=== PATIENT | female | born 1940 | race Caucasian/White ===

== ENCOUNTER → 2016-04-13 | Outpatient (CLI) | payer MEDICARE, BC ==
[2016-04-13 08:39] LABS: ABSOLUTE BASOPHILS # (AUTO) 0.1 10^3/uL (0.0-0.2); ABSOLUTE EOSINOPHILS # (AUTO) 0.2 10^3/uL (0.0-0.6); ABSOLUTE LYMPHOCYTES (AUTO) 0.8 10^3/uL (0.5-4.7); ABSOLUTE MONOCYTES (AUTO) 0.5 10^3/uL (0.1-1.4); ABSOLUTE NEUT (AUTO) 4.6 10^3/uL (1.7-8.2); BASOPHILS % (AUTO) 1.3 % (0-2); EOSINOPHILS % (AUTO) 2.5 % (0-6); HEMATOCRIT 36.7 % (36.0-47.0); HEMOGLOBIN 11.9 g/dL (12.0-15.5); LYMPHOCYTES % (AUTO) 12.5 % (13-45); MEAN CORPUSCULAR HEMOGLOBIN 29.7 pg (27.0-33.4); MEAN CORPUSCULAR HGB CONC 32.5 g/dL (32.0-36.0); MEAN CORPUSCULAR VOLUME 91 fl (80-97); MONOCYTES % (AUTO) 8.6 % (3-13); RED BLOOD COUNT 4.02 10^6/uL (3.72-5.28); RED CELL DISTRIBUTION WIDTH 13.2 % (11.5-14.0); SEGMENTED NEUTROPHILS % (AUTO) 75.1 % (42-78); WHITE BLOOD COUNT 6.1 10^3/uL (4.0-10.5)
[2016-04-13 09:10] LABS: ANION GAP 15 (5-19); BLOOD UREA NITROGEN 67 mg/dL (7-20); CALCIUM 9.7 mg/dL (8.4-10.2); CARBON DIOXIDE 22 mmol/L (22-30); CHLORIDE 107 mmol/L (98-107); CREATININE RESULT 3.03 mg/dL (0.52-1.25); GLUCOSE 99 mg/dL (75-110); PHOSPHORUS 4.4 mg/dL (2.5-4.5); POTASSIUM 4.6 mmol/L (3.6-5.0); SODIUM 144.2 mmol/L (137-145); URIC ACID 12.7 mg/dL (2.5-7.5)
[2016-04-14 11:40] LABS: CREATININE URINE 136.4 mg/dL (Not Estab.)
== END ==
LOC: OD 07:48
PROVIDERS: ATTEND Internal Medicine Nephrology
DX: N18.4 Chronic kidney disease, stage 4 (severe) (principal); E83.30 Disorder of phosphorus metabolism, unspecified; M10.9 Gout, unspecified
CPT/HCPCS: 36415; 80048; 82570; 84100; 84156; 84550; 85025

== ENCOUNTER → 2016-05-13 | Outpatient (CLI) | payer MEDICARE, BC ==
--- NOTE | 2016-05-13 16:01 | XCELERA REPORT ---
[address] [address] Lower Extremity Venous Evaluation Name: ADELAIDA BAR Age: 75 yrs Gender: Female : 1940 Patient Status: Preadmit Patient Location: Study Date: 05/13/2016 01:37 PM Procedure: Color flow and duplex imaging of the veins of the left lower extremity as well as the right Common Femoral vein. Reason For Study: LLE PAIN Ordering Physician: DUANE FERNÁNDEZ Performed By: Melissa Quiñonez Right Sided Venous Evaluation The right common femoral vein is fully compressible. Spontaneous and phasic flow is present in the right common femoral vein. Left Sided Venous Evaluation Normal vessel filling wall to wall, compression and augmentation as well as Colour flow down to the infrageniculate veins. Critical Findings Called [phone] at 1430. Interpretation Summary No duplex evidence of DVT or obstruction in the left lower extremity nor in the right Common Femoral vein. : DUANE FERNÁNDEZ > Dale Rubin
== END ==
LOC: SP 12:55
PROVIDERS: ATTEND Internal Medicine
DX: M79.605 Pain in left leg (principal)
CPT/HCPCS: 93971

== ENCOUNTER → 2016-06-08 | Outpatient (CLI) | payer MEDICARE, BC ==
[2016-06-08 09:24] LABS: ANION GAP 17 (5-19); BLOOD UREA NITROGEN 67 mg/dL (7-20); CALCIUM 9.2 mg/dL (8.4-10.2); CARBON DIOXIDE 21 mmol/L (22-30); CHLORIDE 108 mmol/L (98-107); CREATININE RESULT 3.04 mg/dL (0.52-1.25); GLUCOSE 127 mg/dL (75-110); POTASSIUM 4.3 mmol/L (3.6-5.0); SODIUM 145.8 mmol/L (137-145); URIC ACID 8.1 mg/dL (2.5-7.5)
[2016-06-09 06:45] LABS: HEPATITIS C VIRUS AB <0.1 s/co ratio (0.0-0.9)
[2016-06-09 10:20] LABS: PTH INTACT 108 pg/mL (15-65); VITAMIN D 25-HYDROXY 24.1 ng/mL (30.0-100.0)
[2016-06-09 11:40] LABS: CREATININE URINE 35.9 mg/dL (Not Estab.)
== END ==
LOC: OD 07:54
PROVIDERS: ATTEND Internal Medicine Nephrology
DX: N18.4 Chronic kidney disease, stage 4 (severe) (principal); E55.9 Vitamin D deficiency, unspecified; M10.9 Gout, unspecified
CPT/HCPCS: 36415; 80048; 82306; 82570; 83970; 84156; 84550; 86803; 86804

== ENCOUNTER → 2016-09-09 | Outpatient (CLI) | payer MEDICARE, BC ==
[2016-09-09 09:43] LABS: ABSOLUTE EOSINOPHILS # (AUTO) 0.3 10^3/uL (0.0-0.6); ABSOLUTE LYMPHOCYTES (AUTO) 0.8 10^3/uL (0.5-4.7); ABSOLUTE MONOCYTES (AUTO) 0.4 10^3/uL (0.1-1.4); BASOPHILS % (AUTO) 0.7 % (0-2); EOSINOPHILS % (AUTO) 4.2 % (0-6); HEMATOCRIT 35.1 % (36.0-47.0); HEMOGLOBIN 11.7 g/dL (12.0-15.5); LYMPHOCYTES % (AUTO) 12.5 % (13-45); MEAN CORPUSCULAR HEMOGLOBIN 30.7 pg (27.0-33.4); MEAN CORPUSCULAR HGB CONC 33.2 g/dL (32.0-36.0); MEAN CORPUSCULAR VOLUME 92 fl (80-97); MONOCYTES % (AUTO) 6.6 % (3-13); RED CELL DISTRIBUTION WIDTH 14.3 % (11.5-14.0); WHITE BLOOD COUNT 6.6 10^3/uL (4.0-10.5)
[2016-09-09 10:08] LABS: ALBUMIN 4.3 g/dL (3.5-5.0); ANION GAP 13 (5-19); BLOOD UREA NITROGEN 73 mg/dL (7-20); CALCIUM 8.9 mg/dL (8.4-10.2); CARBON DIOXIDE 23 mmol/L (22-30); CHLORIDE 105 mmol/L (98-107); CREATININE RESULT 2.99 mg/dL (0.52-1.25); GLUCOSE 149 mg/dL (75-110); PHOSPHORUS 5.3 mg/dL (2.5-4.5); POTASSIUM 4.6 mmol/L (3.6-5.0); SODIUM 140.9 mmol/L (137-145); URIC ACID 8.3 mg/dL (2.5-7.5)
[2016-09-09 10:15] LABS: URINE PROTEIN 86.4 mg/dL (<12)
[2016-09-10 09:50] LABS: VITAMIN D 25-HYDROXY 22.7 ng/mL (30.0-100.0)
== END ==
LOC: OD 08:07
PROVIDERS: ATTEND Internal Medicine Nephrology
DX: N18.4 Chronic kidney disease, stage 4 (severe) (principal); D63.1 Anemia in chronic kidney disease; N25.81 Secondary hyperparathyroidism of renal origin; M10.9 Gout, unspecified
CPT/HCPCS: 36415; 80048; 82040; 82306; 82570; 83970; 84100; 84156; 84550; 85025

== ENCOUNTER → 2016-12-12 | Outpatient (CLI) | payer MEDICARE, BC ==
[2016-12-12 11:20] LABS: ABSOLUTE EOSINOPHILS # (AUTO) 0.1 10^3/uL (0.0-0.6); ABSOLUTE LYMPHOCYTES (AUTO) 0.7 10^3/uL (0.5-4.7); ABSOLUTE MONOCYTES (AUTO) 0.4 10^3/uL (0.1-1.4); ABSOLUTE NEUT (AUTO) 4.7 10^3/uL (1.7-8.2); BASOPHILS % (AUTO) 0.8 % (0-2); EOSINOPHILS % (AUTO) 1.7 % (0-6); HEMATOCRIT 33.6 % (36.0-47.0); HEMOGLOBIN 11.4 g/dL (12.0-15.5); HGB HCT DIFFERENCE 0.6; LYMPHOCYTES % (AUTO) 12.3 % (13-45); MEAN CORPUSCULAR HEMOGLOBIN 31.3 pg (27.0-33.4); MEAN CORPUSCULAR HGB CONC 33.9 g/dL (32.0-36.0); MEAN CORPUSCULAR VOLUME 92 fl (80-97); MONOCYTES % (AUTO) 7.4 % (3-13); RED BLOOD COUNT 3.65 10^6/uL (3.72-5.28); RED CELL DISTRIBUTION WIDTH 14.6 % (11.5-14.0); SEGMENTED NEUTROPHILS % (AUTO) 77.8 % (42-78)
[2016-12-12 11:27] LABS: APPEARANCE,URINE CLEAR; BILIRUBIN,URINE NEGATIVE (NEGATIVE); GLUCOSE, URINE NEGATIVE (NEGATIVE); KETONES,URINE NEGATIVE (NEGATIVE); LEUKOCYTE ESTERASE,URINE SMALL (NEGATIVE); NITRITE,URINE NEGATIVE (NEGATIVE); PROTEIN,URINE 30 mg/dL (NEGATIVE); URINE SPECIFIC GRAVITY 1.005; UROBILINOGEN,URINE NEGATIVE mg/dL (<2.0)
[2016-12-12 11:47] LABS: ANION GAP 15 (5-19); BLOOD UREA NITROGEN 68 mg/dL (7-20); CALCIUM 9.7 mg/dL (8.4-10.2); CARBON DIOXIDE 23 mmol/L (22-30); CHLORIDE 108 mmol/L (98-107); CREATININE RESULT 3.11 mg/dL (0.52-1.25); GLUCOSE 87 mg/dL (75-110); PHOSPHORUS 4.4 mg/dL (2.5-4.5); POTASSIUM 4.3 mmol/L (3.6-5.0); SODIUM 145.8 mmol/L (137-145)
[2016-12-12 12:47] LABS: URINE CREATININE 23.7 mg/dL (15-278); URINE PROTEIN 34.5 mg/dL (<12)
== END ==
LOC: OD 10:17
PROVIDERS: ATTEND Internal Medicine Nephrology
DX: N18.4 Chronic kidney disease, stage 4 (severe) (principal); E11.29 Type 2 diabetes mellitus with other diabetic kidney complication; E55.9 Vitamin D deficiency, unspecified; E83.39 Other disorders of phosphorus metabolism
CPT/HCPCS: 36415; 80048; 81001; 82306; 82570; 84100; 84156; 85025

== ENCOUNTER → 2016-12-27 | Outpatient (CLI) | payer MEDICARE, BC ==
[2016-12-27 13:54] LABS: ANION GAP 16 (5-19); BLOOD UREA NITROGEN 81 mg/dL (7-20); CALCIUM 9.3 mg/dL (8.4-10.2); CARBON DIOXIDE 21 mmol/L (22-30); CHLORIDE 108 mmol/L (98-107); CREATININE RESULT 3.11 mg/dL (0.52-1.25); GLUCOSE 93 mg/dL (75-110); POTASSIUM 4.3 mmol/L (3.6-5.0); SODIUM 144.6 mmol/L (137-145)
== END ==
LOC: OD 12:28
PROVIDERS: ATTEND Internal Medicine Nephrology
DX: N18.4 Chronic kidney disease, stage 4 (severe) (principal)
CPT/HCPCS: 36415; 80048

== ENCOUNTER 2017-02-28 07:32 | Day surgery (SDC) | payer MEDICARE, BC ==
[~2017-02-28 07:32] MED LIST: DIAZEPAM 5 MG TABLET PO PRN; OXYCODONE-ACETAMINOPHEN 5-325 MG TABLET PO PRN
[2017-02-28 08:15] LABS: HEMATOCRIT 33.9 % (36.0-47.0); HEMOGLOBIN 11.2 g/dL (12.0-15.5); HGB HCT DIFFERENCE -0.3; MEAN CORPUSCULAR HEMOGLOBIN 31.8 pg (27.0-33.4); MEAN CORPUSCULAR HGB CONC 33.2 g/dL (32.0-36.0); MEAN CORPUSCULAR VOLUME 96 fl (80-97); RED BLOOD COUNT 3.54 10^6/uL (3.72-5.28); RED CELL DISTRIBUTION WIDTH 15.4 % (11.5-14.0); WHITE BLOOD COUNT 7.1 10^3/uL (4.0-10.5)
[2017-02-28] MEDS ORDERED: FENTANYL CITRATE INJ/PF 100 MCG/2 ML AMPUL ONE ×2 (08:25→11:26)
[2017-02-28] MEDS ORDERED: MIDAZOLAM 2 MG/2 ML INJ ONE (08:25)
[2017-02-28] MEDS ORDERED: PROPOFOL INJ 200 MG/20 ML VIAL IV ONE (08:26)
[2017-02-28] MEDS ORDERED: VANCOMYCIN HCL 500 MG in DEXTROSE 5%-WATER 100 ML IV PRN (08:30)
[2017-02-28 08:38] LABS: ANION GAP 15 (5-19); BLOOD UREA NITROGEN 55 mg/dL (7-20); CALCIUM 9.2 mg/dL (8.4-10.2); CARBON DIOXIDE 25 mmol/L (22-30); CHLORIDE 106 mmol/L (98-107); CREATININE RESULT 3.08 mg/dL (0.52-1.25); GLUCOSE 111 mg/dL (75-110); SODIUM 145.7 mmol/L (137-145)
[2017-02-28] MEDS ORDERED: LIDOCAINE 0.5% INJ-PF (5 MG/ML) 50 ML SDV ONE (08:47)
[2017-02-28] MEDS ORDERED: VANCOMYCIN HCL INJ 500 MG VIAL ONE (08:54)
[2017-02-28] MEDS ORDERED: HEPARIN SOD (PORCINE) 5,000 UNIT/ML 1 ML SYRINGE ONE (08:56)
[2017-02-28] MEDS ORDERED: BACITRACIN INJ 50,000 UNIT VIAL ONE (08:56)
[2017-02-28] MEDS ORDERED: FENTANYL CITRATE INJ/PF 100 MCG/2 ML AMPUL IV PRN ×2 (11:26)
[2017-02-28] MEDS ORDERED: ACETAMINOPHEN 100 ML IV ONE (11:26)
[2017-02-28] MEDS ORDERED: ONDANSETRON HCL INJ/PF 4 MG/2 ML SDV IV PRN (11:26)
--- NOTE | 2017-02-28 11:28 | PDOC DISCHARGE SUMMARY ---
Discharge Summary (SDC) - Discharge Final Diagnosis: #1 malfunctioning arteriovenous fistula, left radiocephalic. 2. End-stage renal disease on hemodialysis. 3. Obesity. 4. Diabetes mellitus type 2. 5. Hypertension Date of Surgery: 02/28/17 Discharge Date: 02/28/17 Condition: Good Treatment or Instructions: Discharge home [after recovery per ASU criteria]. Diet , [renal],as tolerated, when fully awake advance as tolerated. Activities within moderation encouraged. Follow up in my office by appointment in about [1 week]. Call for appointment. Leave wounds [covered], [keep clean and dry, until office visit in 1 week]. Hold of on school/work [until evaluation in office]. Meds per med rec. May shower [in 48 hrs], [try to keep operated area as dry as possible]. Prescriptions: Oxycodone HCl/Acetaminophen [Percocet 5-325 mg Tablet] 1 tab PO ASDIR PRN #15 tab PRN Reason: Referrals: DUANE FERNÁNDEZ MD [Primary Care Provider] - Discharge Diet: Other (Comments) - Renal Respiratory Treatments at Home: Deep Breathing/Coughing Discharge Activity: Activity As Tolerated Report the Following to Your Physician Immediately: Shortness of Breath, Unusual Bleeding
--- NOTE | 2017-02-28 11:37 | Operative Report ---
Operative Report DATE OF SURGERY: 02/28/17 PREOPERATIVE DIAGNOSIS: #1 malfunctioning arteriovenous fistula, left radiocephalic. 2. End-stage renal disease on hemodialysis. 3. Obesity. 4. Diabetes mellitus type 2. 5. Hypertension POSTOPERATIVE DIAGNOSIS: #1 malfunctioning arteriovenous fistula, left radiocephalic. Post Port-A-Cath insertion and distal angioplasty. 2. End- stage renal disease on hemodialysis. 3. Obesity. 4. Diabetes mellitus type 2. 5. Hypertension I collected those OPERATION: 1. Ultrasound evaluation of the right internal jugular vein also ultrasound evaluation of left radiocephalic fistula. 2. Insertion of PermCath via real-time access in the right internal jugular vein. 3. Angioplasty of left forearm greatest radiocephalic fistula. 5. Angiogram and Interpretation. SURGEON: FLY WATSON Child Daycare Worker: None ANESTHESIA: LMAC TISSUE REMOVED OR ALTERED: Not applicable. COMPLICATIONS: None. ESTIMATED BLOOD LOSS: 5 mL. INTRAOPERATIVE FINDINGS: Of a satisfactory right internal jugular vein to support permacatheter. Estimated to be 1.5 cm in diameter. Good position of the catheter with the tip down in the upper right atrial pool. Easy egress of blood and ingress of heparinized solution through both ports. Contrast study showed the right atrium moderate size, smooth flow through the catheter, right atrium and pulmonary outflow tract. Left forearm fistula demonstrates a stenosis at the arteriovenous anastomosis estimated to be 50% of the adjacent lumen. Very little residual stenosis after angioplasty with a 5 mm balloon. Ultrasound shows the fistula to be 7.5 mm in diameter and 7.5 mm deep. This was dilated moderately with an 8 mm balloon with improvement visually. There is also a large collateral coming off the mid forearm portion of the fistula. These findings suggest that, with resolution of bruising the fistula should be available for use in about 1 week. Otherwise ligation of the large branch and superficial laceration may be needed. Further dilatation is probably not likely to be that helpful. PROCEDURE: After obtaining informed consent, the patient was taken to the [Lamp Replacer] and positioned supine. The [right neck] and chest were prepared with chlorhexidine and draped out with sterile linen. After the " universal timeout", in which it was verified that the patient continued to receive antibiotic, the procedure commenced. A steriley sheathed ultrasound probe was used to evaluate the [ right internal jugular] vein. Local anesthesia was infiltrated adjacent to the probe. Access into the [right internal jugular] vein was obtained using a micropuncture needle, followed by micropuncture wire and then a micropuncture catheter. This was followed by introduction of a 0.035 guidewire the tip of which was placed down into the inferior vena cava . A 23 cm long permacatheter was now positioned over the chest and an exit site marked and locally anesthetized ,the catheter was placed between the 2 incisions. Proximally, the catheter was now positioned using a peel-away sheath, after dilation. Easy ingress of heparinized solution and egress of blood obtained through both ports. A completion angiogram was done by injecting contrast. The findings were as dictated. The neck incision was now closed using interrupted 3-0 PDS to the subcutaneous tissues, the catheter was anchored at the exit site using 3- 0 PDS. A Biopatch device was now placed adjacent to the catheter. Dressings were applied and the procedure concluded. PROCEDURE: After verifying the procedure and having obtained informed consent, the patient's left arm and forearm were prepared with Chlorhexidine and draped out with sterile linen. Local anesthesia infiltrated. Percutaneous access into the fistula ,[retrograde], obtained about [20 cm] from the arteriovenous anastomosis using a micro puncture needle followed by micro puncture wire and then a micro puncture catheter. This was done on ultrasound guidance using real-time access into the vein. Ultrasound was also used to size the vein. A 0.035 Durant wire was inserted, and over this, a 6 Danish short introducer was placed, this was followed by a Kumpe catheter over the guidewire. This allowed an angiogram with the findings as dictated. A [5] angioplasty balloon . Angioplasty was now done at the distal radial artery at the anastomosis, using a 3 mils syringe. This was done very carefully and sustained for 2 minutes. Angiogram demonstrated successful outcome. The balloon was now swapped over the wire for a 8 mm angioplasty balloon. Angioplasty was In the body of the fistula and up to the introducer. Inflating for a minute at a time.]. Completion angiogram demonstrated [satisfactory result]. The instrumentation was now withdrawn over and pressure for 10 minutes. Dressings applied, procedure concluded. Exposure time: 1. minutes Radiation: 22 mCi Contrast: 25 mL of Isovue-M 300 low osmolality. DICTATING PHYSICIAN: FLY CASTLE M.D. cc: FLY CASTLE M.D. ([id number]) >>
[2017-02-28 14:23] VITALS: BP 145/88
--- NOTE | 2017-02-28 16:51 | RADIOLOGY REPORT (SQ) ---
EXAM DESCRIPTION: TUNNELED CENTRAL LINE; GUIDANCE FLUOROSCOPIC; FISTULAGRAM W/PLASTY COMPLETED DATE/TIME: 02/28/2017 2:48 pm; 02/28/2017 12:34 pm REASON FOR STUDY: T82.858A; NEED FOR VASCULAR ACCESS T82.858A STENOSIS OF OTHER VASCULAR PROSTH DEV /GRFT, INIT COMPARISON: Two-view chest 08/18/2015 FLUOROSCOPY TIME: 1.2 minutes 8 digital images saved to PACS. TECHNIQUE: Intra-operative images acquired during surgical procedure to evaluate progress. NUMBER OF IMAGES: 32 digital radiographic images LIMITATIONS: None. FINDINGS: Intra procedural imaging and fluoro during evaluation and plasty of a left upper extremity dialysis graft by Dr. Rubin. Intra procedural imaging and fluoro during placement of a central venous dialysis catheter with the t ip in the right atrium. Please see the operative report for further details IMPRESSION: Intra procedural imaging and fluoro COMMENT: Quality ID 145: Final reports for procedures using fluoroscopy that document radiation exp osure indices, or exposure time and number of fluorographic images (if radiation exposure indices are not available) Please consult full operative report of the attending physician for description of the procedure. TECHNICAL DOCUMENTATION: JOB ID: [id number] [employer]- All Rights Reserved
== END 2017-02-28 13:35 | disposition home or self-care (01) ==
LOC: CCL 07:32
PROVIDERS: ATTEND Surgery
PROC: 057F3DZ Dilation of Left Cephalic Vein with Intraluminal Device, Percutaneous Approach (ICD-10-PCS; principal; 2017-02-28)
PROC: 05HM33Z Insertion of Infusion Device into Right Internal Jugular Vein, Percutaneous Approach (ICD-10-PCS; 2017-02-28)
DX: T82.858A Stenosis of other vascular prosthetic devices, implants and grafts, initial encounter (principal); Y83.2 Surgical operation with anastomosis, bypass or graft as the cause of abnormal reaction of the patient, or of later complication, without mention of misadventure at the time of the procedure; I12.0 Hypertensive chronic kidney disease with stage 5 chronic kidney disease or end stage renal disease; N18.6 End stage renal disease; E11.22 Type 2 diabetes mellitus with diabetic chronic kidney disease; M54.30 Sciatica, unspecified side; D50.9 Iron deficiency anemia, unspecified; E83.39 Other disorders of phosphorus metabolism; M19.90 Unspecified osteoarthritis, unspecified site; K75.81 Nonalcoholic steatohepatitis (NASH); I48.91 Unspecified atrial fibrillation; F17.210 Nicotine dependence, cigarettes, uncomplicated; Z79.899 Other long term (current) drug therapy; E66.9 Obesity, unspecified; Z68.43 Body mass index [BMI] 50.0-59.9, adult
CPT/HCPCS: 36415; 85027; 80048; 36558; 36902; 76937; 77001; C1725 ×2; C1713; C1752; C1887; Q9967; C1769; J2250; J3490 ×2; J1644 ×2; J3010; J3370; J2704; J0131; 1844

== ENCOUNTER → 2017-04-01 | Outpatient (CLI) | payer MEDICARE, BC ==
--- NOTE | 2017-04-01 15:26 | RADIOLOGY REPORT (SQ) ---
EXAM DESCRIPTION: CT ABD/PELVIS ORAL ONLY COMPLETED DATE/TIME: 04/01/2017 11:13 am REASON FOR STUDY: RIGHT UPPER QUADRANT PAIN K75.81 NONALCOHOLIC STEATOHEPATITIS (CAIN) R10.11 RIGH T UPPER QUADRANT PAIN COMPARISON: 04/29/2015. TECHNIQUE: CT scan of the abdomen and pelvis performed with oral contrast and no intravenous contras t. Images reviewed with lung, soft tissue, and bone windows. Reconstructed coronal and sagittal MPR i mages reviewed. All images stored on PACS. All CT scanners at this facility use dose modulation, iterative reconstruction, and/or weight based d osing when appropriate to reduce radiation dose to as low as reasonably achievable (ALARA). [facility]: Dose Right [facility]: CareDose [facility]: Dose Right [facility]: Teradose 4D [facility]: [employer] RADIATION DOSE: CT Rad equipment meets quality standard of care and radiation dose reduction techniq ues were employed. CTDIvol: 17.4 mGy. DLP: 963 mGy-cm.mGy. LIMITATIONS: None. FINDINGS: LOWER CHEST: No significant findings. No nodules or infiltrates. NON-CONTRASTED LIVER, SPLEEN, ADRENALS: Evaluation limited by lack of IV contrast. Right adrenal gla nd not visualized. Left adrenal gland appears slightly enlarged. No other identified significant ma sses. PANCREAS: No masses. No peripancreatic inflammatory changes. GALLBLADDER: Surgically absent. RIGHT KIDNEY AND URETER: There is a large mass occupying the upper portion of the kidney. Maximum tr ansverse measurement 10 x 12 cm. Irregular margins. LEFT KIDNEY AND URETER: Probable cortical cysts. No solid masses. No significant calcification. No h ydronephrosis or hydroureter. AORTA AND RETROPERITONEUM: No aneurysm. There are a few retroperitoneal lymph nodes measuring slight ly over 1 cm. There is also an enlarged retrocrural node on the right side measuring 1.5 cm. BOWEL AND PERITONEAL CAVITY: No obvious masses or inflammatory changes. Trace free fluid in the righ t upper quadrant between the liver and diaphragm. APPENDIX: Normal. PELVIS, BLADDER, AND ABDOMINAL WALL: No abnormal pelvic masses. No abdominal wall hernias. Bladder un remarkable. BONES: No significant findings. Degenerative changes in the spine. OTHER: No other significant finding. IMPRESSION: 1. VERY LARGE IRREGULAR SOFT TISSUE MASS OCCUPYING THE UPPER PORTION OF THE RIGHT KIDNEY, CONSISTENT WITH RENAL MALIGNANCY. RECOMMEND FURTHER EVALUATION WITH MRI OF THE KIDNEYS. 2. RETROPERITONEAL AND RETROCRURAL ADENOPATHY. 3. TRACE FREE FLUID IN IN THE RIGHT UPPER QUADRANT BETWEEN THE LIVER AND DIAPHRAGM. 4. PROBABLE CORTICAL CYST IN THE LEFT KIDNEY. TECHNICAL DOCUMENTATION: JOB ID: [id number] Quality ID # 436: Final reports with documentation of one or more dose reduction techniques (e.g., Au tomated exposure control, adjustment of the mA and/or kV according to patient size, use of iterative reconstruction technique) 2010 [email or web address]- All Rights Reserved
== END ==
LOC: RAD 10:49
PROVIDERS: ATTEND Surgery
DX: K75.81 Nonalcoholic steatohepatitis (NASH) (principal); R10.11 Right upper quadrant pain
CPT/HCPCS: 74176

== ENCOUNTER → 2017-04-07 | Outpatient (CLI) | payer MEDICARE, BC ==
--- NOTE | 2017-04-07 14:10 | RADIOLOGY REPORT (SQ) ---
EXAM DESCRIPTION: CT CHEST WITH COMPLETED DATE/TIME: 04/07/2017 1:35 pm REASON FOR STUDY: C64.1 MALIGNANT NEOPLASM OF RIGHT KIDNEY, EXCEPT RENAL PELVIS C64.1 MALIGNANT MERRY PLASM OF RIGHT KIDNEY, EXCEPT RENAL PELVI COMPARISON: None. TECHNIQUE: CT scan of the chest performed using helical scanning technique with dynamic intravenous contrast injection. Images reviewed with lung, soft tissue and bone windows. Reconstructed coronal and sagittal MPR images reviewed. All images stored on PACS. All CT scanners at this facility use dose modulation, iterative reconstruction, and/or weight based d osing when appropriate to reduce radiation dose to as low as reasonably achievable (ALARA). [facility]: Dose Right [facility]: CareDose [facility]: Dose Right [facility]: Teradose 4D [facility]: [employer] CONTRAST TYPE AND DOSE: 96 mL Isovue 370 RENAL FUNCTION: Creatinine 1.5 RADIATION DOSE: . LIMITATIONS: None. FINDINGS: LUNGS AND PLEURA: No opacities, nodules, masses. No pneumothorax. Tiny right pleural eff usion is identified. Linear density is identified in the left lung base anteriorly which could repre sent subsegmental atelectasis or scarring. HILAR AND MEDIASTINAL STRUCTURES: No identified masses or abnormal nodes. HEART AND VASCULAR STRUCTURES: No aneurysm or dissection. No central pulmonary emboli. No pericardi al effusion. HARDWARE: Central line is identified with its tip at the approximate junction of SVC and right atrium . UPPER ABDOMEN: See results under abdominal CT is THYROID AND OTHER SOFT TISSUES: No masses. No adenopathy. BONES: No significant finding. OTHER: No other significant finding. IMPRESSION: No evidence for intrathoracic metastatic disease is seen. Findings as noted above TECHNICAL DOCUMENTATION: JOB ID: [id number] Quality ID # 436: Final reports with documentation of one or more dose reduction techniques (e.g., Au tomated exposure control, adjustment of the mA and/or kV according to patient size, use of iterative reconstruction technique) 2010 [employer]- All Rights Reserved
--- NOTE | 2017-04-07 14:43 | RADIOLOGY REPORT (SQ) ---
EXAM DESCRIPTION: CT ABD/PELVIS WITH IV ONLY COMPLETED DATE/TIME: 04/07/2017 1:35 pm REASON FOR STUDY: C64.1 MALIGNANT NEOPLASM OF RIGHT KIDNEY, EXCEPT RENAL PELVIS C64.1 MALIGNANT MERRY PLASM OF RIGHT KIDNEY, EXCEPT RENAL PELVI COMPARISON: Non IV contrasted CT of the abdomen and pelvis dated 04/01/2017 TECHNIQUE: CT scan of the abdomen and pelvis performed using helical scanning technique with dynamic intravenous contrast injection. No oral contrast. Images reviewed with lung, soft tissue, and bone windows. Reconstructed coronal and sagittal MPR images reviewed. Delayed images for evaluation of the urinary system also acquired. All images stored on PACS. All CT scanners at this facility use dose modulation, iterative reconstruction, and/or weight based d osing when appropriate to reduce radiation dose to as low as reasonably achievable (ALARA). [facility]: Dose Right [facility]: CareDose [facility]: Dose Right [facility]: Teradose 4D [facility]: [employer] CONTRAST TYPE AND DOSE: contrast/concentration: Isovue 370.00 mg/ml; Total Contrast Delivered: 96.0 ml; Total Saline Delivered: 59.0 ml RENAL FUNCTION: Creatinine 1.5 RADIATION DOSE: CT Rad equipment meets quality standard of care and radiation dose reduction techniq ues were employed. CTDIvol: 12.8 - 23.1 mGy. DLP: 2692 mGy-cm.. LIMITATIONS: None. FINDINGS: LOWER CHEST: See results under chest CT scan LIVER: Normal size. No masses. No dilated ducts. SPLEEN: Normal size. No focal lesions. PANCREAS: No masses. No significant calcifications. No adjacent inflammation or peripancreatic fluid collections. Pancreatic duct not dilated. GALLBLADDER: Status post cholecystectomy ADRENAL GLANDS: Normal right adrenal gland is not identified. Slightly enlarged left adrenal gland i s again identified. RIGHT KIDNEY AND URETER: The right kidney is displaced laterally by the large right upper quadrant ma ss but appears distinct from the mass. No significant calcifications. No hydronephrosis or hydrou reter. LEFT KIDNEY AND URETER: No solid masses small renal cyst is identified. . No significant calcifica tions. No hydronephrosis or hydroureter. AORTA AND VESSELS: No aneurysm. No dissection. Renal arteries, SMA, celiac without stenosis. RETROPERITONEUM: There is retroperitoneal adenopathy anterior to the distal superior vena cava and ad jacent to the distal abdominal aorta. There are couple enlarged lymph nodes at the bifurcation of th e celiac axis. BOWEL AND PERITONEAL CAVITY: No masses or inflammatory changes. Tiny amount of ascitic fluid is iden tified just posterior to the right lobe of the liver. APPENDIX: Normal. PELVIS: No mass. No free fluid. Normal bladder. ABDOMINAL WALL: No masses. No hernias. BONES: No significant or acute findings. Degenerative changes are identified in the lumbar spine OTHER: A large lobulated right upper quadrant mass is identified measuring 13.1 cm in AP diameter, 11 .9 cm in transverse diameter, and 10.9 cm in cephalocaudal dad diameter which displaces the right kid roseanne laterally and appears to be separate from the right kidney. The mass displaces the inferior vena cava anteriorly. IMPRESSION: Large lobulated right upper quadrant mass as noted above. The differential possibilitie s would include a renal neoplasm although the mass appears separate from the right kidney. This coul d represent an adrenal mass as the right adrenal gland is not identified. This could also represent some sort of retroperitoneal sarcoma. Other etiologies cannot be excluded. Clinical correlation is recommended. Other findings as noted above TECHNICAL DOCUMENTATION: JOB ID: [id number] Quality ID # 436: Final reports with documentation of one or more dose reduction techniques (e.g., Au tomated exposure control, adjustment of the mA and/or kV according to patient size, use of iterative reconstruction technique) 2010 [employer]- All Rights Reserved
== END ==
LOC: RAD 13:26
PROVIDERS: ATTEND Internal Medicine
DX: C64.1 Malignant neoplasm of right kidney, except renal pelvis (principal)
CPT/HCPCS: 71260; 74177; 82565

== ENCOUNTER 2017-04-25 08:58 | Day surgery (SDC) | payer MEDICARE, BC ==
[2017-04-25 09:43] LABS: HEMATOCRIT 31.5 % (36.0-47.0); HEMOGLOBIN 10.4 g/dL (12.0-15.5); MEAN CORPUSCULAR HEMOGLOBIN 30.8 pg (27.0-33.4); MEAN CORPUSCULAR HGB CONC 32.9 g/dL (32.0-36.0); MEAN CORPUSCULAR VOLUME 94 fl (80-97); PLATELET COUNT 103 10^3/uL (150-450); RED BLOOD COUNT 3.37 10^6/uL (3.72-5.28); RED CELL DISTRIBUTION WIDTH 16.4 % (11.5-14.0); WHITE BLOOD COUNT 5.4 10^3/uL (4.0-10.5)
[2017-04-25 09:49] LABS: INTERNATIONAL RATION (INR) 1.15; PROTHROMBIN TIME 15.5 SEC (11.4-15.4)
[2017-04-25 09:50] LABS: PARTIAL THROMBOPLASTIN TIME 38.3 SEC (23.5-35.8)
[2017-04-25 10:01] LABS: BLOOD UREA NITROGEN 44 mg/dL (7-20)
[2017-04-25] MEDS ORDERED: LIDOCAINE 1% INJ-PF (10 MG/ML) 30 ML SDV ONE (11:37)
[2017-04-25] MEDS ORDERED: FENTANYL CITRATE INJ/PF 100 MCG/2 ML AMPUL ONE (11:57)
[2017-04-25] MEDS ORDERED: MIDAZOLAM 2 MG/2 ML INJ ONE (11:57)
--- NOTE | 2017-04-25 13:35 | RADIOLOGY REPORT (SQ) ---
EXAM DESCRIPTION: CT BIOPSY ABD/RETROPERIT MASS; CT NEEDLE PLACEMENT COMPLETED DATE/TIME: 04/25/2017 12:39 pm REASON FOR STUDY: MALIGNANT NEOPLASM OF RIGHT KIDNEY EXCEPT RENAL PELVIS C64.1 MALIGNANT NEOPLASM O F RIGHT KIDNEY, EXCEPT RENAL PELVI Z79.01 SENIOR LIVING (CURRENT) USE OF ANTICOAGULANTS COMPARISON: CT abdomen pelvis 04/07/2017 TECHNIQUE: CT guided biopsy of the right retroperitoneal mass performed with conscious sedation. CT Fluoroscopy Time: 6.[address] scanners at this facility use dose modulation, iterative reconstruction, and/or weight based d osing when appropriate to reduce radiation dose to as low as reasonably achievable (ALARA). [facility]: Dose Right [facility]: CareDose [facility]: Dose Right [facility]: Teradose 4D [facility]: [employer] RADIATION DOSE: mGy. FINDINGS: The procedure was discussed with the patient and the patient agreed to the procedure. Prio r to the procedure, a time out was performed to verify the patient's identity and planned procedure. IV pain control was administered and physician direction by the registered nurse using 25 micrograms of fentanyl. Physiologic monitoring was provided before, during, and after sedation. The total pain c ontrol time was 15 minutes. Documentation face to face time, the performing proceduralist, spent monitoring the patient: [address] scanning was performed to localize the percutaneous site for the biopsy approach. After sterile skin prep and local lidocaine for skin and deep tissue anesthesia, a coaxial biopsy nee dle was used to obtain multiple cores of tissue. The biopsy tissue was submitted to the lab in formal in. There were no immediate complications. Pathology is pending at the time of dictation. IMPRESSION: CT GUIDED BIOPSY OF THE LARGE RIGHT RETROPERITONEAL MASS PERFORMED WITHOUT IMMEDIATE COM PLICATION. PATHOLOGY PENDING. COMMENT: Quality ID 145: Final reports for procedures using fluoroscopy that document radiation exp osure indices, or exposure time and number of fluorographic images (if radiation exposure indices are not available) Patient medication list reviewed: Yes- Quality ID# [id number]:Eligible professional attests to documenting i n the medical record they obtained, updated, or reviewed the patient's current medications.. TECHNICAL DOCUMENTATION: JOB ID: [id number] Quality ID# 436: Final reports with documentation of one or more dose reduction techniques (e.g., Aut omated exposure control, adjustment of the mA and/or kV according to patient size, use of iterative r econstruction technique) 2010 [employer]- All Rights Reserved
--- NOTE | 2017-04-25 13:35 | RADIOLOGY REPORT (SQ) ---
EXAM DESCRIPTION: CT BIOPSY ABD/RETROPERIT MASS; CT NEEDLE PLACEMENT COMPLETED DATE/TIME: 04/25/2017 12:39 pm REASON FOR STUDY: MALIGNANT NEOPLASM OF RIGHT KIDNEY EXCEPT RENAL PELVIS C64.1 MALIGNANT NEOPLASM O F RIGHT KIDNEY, EXCEPT RENAL PELVI Z79.01 LONG-TERM (CURRENT) USE OF ANTICOAGULANTS COMPARISON: CT abdomen pelvis 04/07/2017 TECHNIQUE: CT guided biopsy of the right retroperitoneal mass performed with conscious sedation. CT Fluoroscopy Time: 6.[address] scanners at this facility use dose modulation, iterative reconstruction, and/or weight based d osing when appropriate to reduce radiation dose to as low as reasonably achievable (ALARA). [facility]: Dose Right [facility]: CareDose [facility]: Dose Right [facility]: Teradose 4D [facility]: [employer] RADIATION DOSE: mGy. FINDINGS: The procedure was discussed with the patient and the patient agreed to the procedure. Prio r to the procedure, a time out was performed to verify the patient's identity and planned procedure. IV pain control was administered and physician direction by the registered nurse using 25 micrograms of fentanyl. Physiologic monitoring was provided before, during, and after sedation. The total pain c ontrol time was 15 minutes. Documentation face to face time, the performing proceduralist, spent monitoring the patient: [address] scanning was performed to localize the percutaneous site for the biopsy approach. After sterile skin prep and local lidocaine for skin and deep tissue anesthesia, a coaxial biopsy nee dle was used to obtain multiple cores of tissue. The biopsy tissue was submitted to the lab in formal in. There were no immediate complications. Pathology is pending at the time of dictation. IMPRESSION: CT GUIDED BIOPSY OF THE LARGE RIGHT RETROPERITONEAL MASS PERFORMED WITHOUT IMMEDIATE COM PLICATION. PATHOLOGY PENDING. COMMENT: Quality ID 145: Final reports for procedures using fluoroscopy that document radiation exp osure indices, or exposure time and number of fluorographic images (if radiation exposure indices are not available) Patient medication list reviewed: Yes- Quality ID# [id number]:Eligible professional attests to documenting i n the medical record they obtained, updated, or reviewed the patient's current medications.. TECHNICAL DOCUMENTATION: JOB ID: [id number] Quality ID# 436: Final reports with documentation of one or more dose reduction techniques (e.g., Aut omated exposure control, adjustment of the mA and/or kV according to patient size, use of iterative r econstruction technique) 2010 [employer]- All Rights Reserved
[2017-04-25 15:07] VITALS: BP 114/58
== END 2017-04-25 15:07 | disposition home or self-care (01) ==
LOC: RAD 08:58
PROVIDERS: ATTEND Internal Medicine
PROC: 0WBH3ZX Excision of Retroperitoneum, Percutaneous Approach, Diagnostic (ICD-10-PCS; principal; 2017-04-25)
DX: C64.1 Malignant neoplasm of right kidney, except renal pelvis (principal); Z79.01 Long term (current) use of anticoagulants
CPT/HCPCS: 36415; 82962; 84520; 82565; 85027; 85610; 85730; 88342 ×2; 88341 ×2; 88305 ×2; 77012; 49180; J2250; J3010; J3490

== ENCOUNTER 2017-04-27 15:30 | Inpatient (IN) | payer MEDICARE, BC ==
[2017-04-27 16:16] LABS: ABSOLUTE BASOPHILS # (AUTO) 0.1 10^3/uL (0.0-0.2); ABSOLUTE LYMPHOCYTES (AUTO) 0.9 10^3/uL (0.5-4.7); ABSOLUTE NEUT (AUTO) 4.3 10^3/uL (1.7-8.2); HEMATOCRIT 32.1 % (36.0-47.0); HEMOGLOBIN 10.6 g/dL (12.0-15.5); LYMPHOCYTES % (AUTO) 14.1 % (13-45); MEAN CORPUSCULAR HEMOGLOBIN 30.6 pg (27.0-33.4); MEAN CORPUSCULAR VOLUME 93 fl (80-97); MONOCYTES % (AUTO) 16.5 % (3-13); PLATELET COUNT 114 10^3/uL (150-450); RED BLOOD COUNT 3.47 10^6/uL (3.72-5.28); RED CELL DISTRIBUTION WIDTH 16.5 % (11.5-14.0); SEGMENTED NEUTROPHILS % (AUTO) 68.4 % (42-78); TOTAL CELLS COUNTED % (AUTO) 100 %; WHITE BLOOD COUNT 6.3 10^3/uL (4.0-10.5)
[2017-04-27 16:27] LABS: ALANINE AMINOTRANSFERASE 31 U/L (9-52); ALKALINE PHOSPHATASE 92 U/L (38-126); ANION GAP 18 (5-19); ASPARTATE AMINO TRANSFERASE 36 U/L (14-36); BILIRUBIN,DIRECT 1.1 mg/dL (0.0-0.4); BILIRUBIN,TOTAL 2.3 mg/dL (0.2-1.3); BLOOD UREA NITROGEN 62 mg/dL (7-20); CALCIUM 9.6 mg/dL (8.4-10.2); CARBON DIOXIDE 19 mmol/L (22-30); CHLORIDE 102 mmol/L (98-107); GLUCOSE 119 mg/dL (75-110); POTASSIUM 4.5 mmol/L (3.6-5.0); TOTAL PROTEIN 6.8 g/dL (6.3-8.2)
--- NOTE | 2017-04-27 16:47 | RADIOLOGY REPORT (SQ) ---
EXAM DESCRIPTION: CHEST SINGLE VIEW COMPLETED DATE/TIME: 04/27/2017 4:36 pm REASON FOR STUDY: sob COMPARISON: Chest CT scan dated 04/07/2017 EXAM PARAMETERS: NUMBER OF VIEWS: One view. TECHNIQUE: Single frontal radiographic view of the chest acquired. RADIATION DOSE: NA LIMITATIONS: None. FINDINGS: LUNGS AND PLEURA: No opacities, masses or pneumothorax. No pleural effusion. MEDIASTINUM AND HILAR STRUCTURES: No masses. Contour normal. HEART AND VASCULAR STRUCTURES: Cardiac silhouette is at the upper limits of normal in size. BONES: No acute findings. HARDWARE: Dual lumen central line is seen with its tip at the level of the right atrium P OTHER: No other significant finding. IMPRESSION: NO ACUTE RADIOGRAPHIC FINDING IN THE CHEST. TECHNICAL DOCUMENTATION: JOB ID: [id number] [employer]- All Rights Reserved
[2017-04-27] MEDS ORDERED: HYDROMORPHONE HCL INJ/PF 2 MG/ML AMPULE IV ONE (18:58)
[2017-04-27] MEDS ORDERED: DEXTROSE 5%-NORMAL SALINE 1,000 ML IV ONE (19:50)
[2017-04-27] MEDS ORDERED: INSULIN REG, HUMAN 100 UNIT/ML 3 ML VIAL (PYX) IV ONE (19:52)
[2017-04-27] MEDS ORDERED: NORMAL SALINE 1000 ML 1,000 ML IV ONE (19:53)
--- NOTE | 2017-04-27 20:22 | ER Document Report ---
ED General - General Chief Complaint: Arrhythmia Stated Complaint: HIGH HEART RATE Time Seen by Provider: 04/27/17 15:48 Information source: Patient, Relative, Transfer Record, [facility] Records TRAVEL OUTSIDE OF THE [place] IN LAST 30 DAYS: No - HPI Patient complains to provider of: rapid heart beat Onset: Just prior to arrival Onset/Duration: Sudden Associated symptoms: Shortness of breath, Weakness Exacerbated by: Denies Relieved by: Denies Similar symptoms previously: Yes - during HD Recently seen / treated by doctor: Yes - sent over by Dr. Morrell Notes: 76-year-old female comes over sent by Dr. Morrell from his office for atrial tachycardia. Patient had a newly diagnosed retroperitoneal mass and recently had a biopsy. She is awaiting pathology report on that. Patient also end- stage renal disease. She had an AV fistula placed 2 years ago in her left upper extremity however she did not start dialysis until this January. She states that the AV fistula is not working so she does have a PermCath in the right side of her chest. She seen Dr. Vasquez hematology oncology one time last week and she is awaiting the biopsy results for follow-up. He states for the last few weeks she has had this rapid heartbeat with palpitations shortness of breath and near syncope. She states it can happen while she is on dialysis or while she is off it. She denies nausea vomitin fevers or diarrhea. She has a history of Montero, A. fib, gout, diabetes. She sees Dr. Ellen Elliott is her primary medical doctor. Patient is due for dialysis tomorrow. Her neurologist is Dr. Duong - Related Data Allergies/Adverse Reactions: cefprozil [From Cefzil] Allergy (Unknown, Verified 04/27/17 09:43) Past Medical History - General Information source: Patient, Relative, [facility] Records - Social History Smoking Status: Never Smoker Frequency of alcohol use: None Drug Abuse: None Lives with: Family Family History: Reviewed & Not Pertinent, DM Patient has suicidal ideation: No Patient has homicidal ideation: No - Past Medical History Cardiac Medical History: Reports: Hx Atrial Fibrillation, Hx Hypercholesterolemia, Hx Hypertension Denies: Hx Coronary Artery Disease, Hx Heart Attack Pulmonary Medical History: Denies: Hx Asthma, Hx Bronchitis, Hx COPD, Hx Pneumonia, Hx Tuberculosis Neurological Medical History: Reports: None. Denies: Hx Cerebrovascular Accident, Hx Seizures Endocrine Medical History: Reports: Hx Diabetes Mellitus Type 1, Hx Diabetes Mellitus Type 2 Renal/ Medical History: Reports: Hx End Stage Renal Disease, Hx Kidney Stones , Hx Peritoneal Dialysis Malignancy Medical History: Reports: None, Other - Retroperitoneal mass. Patient awaiting biopsy results GI Medical History: Reports: None Musculoskeltal Medical History: Reports Hx Arthritis - GENEARLIZED Psychiatric Medical History: Reports: Hx Depression Traumatic Medical History: Reports: None Past Surgical History: Reports: Hx Section, Hx Cholecystectomy, Hx Orthopedic Surgery - left knee, Hx Thyroid Surgery - parathyroid. Denies: Hx Pacemaker - Immunizations Hx Diphtheria, Pertussis, Tetanus Vaccination: Yes Hx Pneumococcal Vaccination: 12/18/14 Review of Systems - Review of Systems Constitutional: No symptoms reported EENT: No symptoms reported Cardiovascular: See HPI Respiratory: See HPI Gastrointestinal: No symptoms reported Genitourinary: No symptoms reported Musculoskeletal: No symptoms reported Skin: No symptoms reported Hematologic/Lymphatic: No symptoms reported Neurological/Psychological: Weakness Physical Exam - Vital signs Vitals: Resp Pulse Ox 11 L 99 04/27/17 15:44 04/27/17 15:44 - Notes Notes: PHYSICAL EXAMINATION: GENERAL: She appears chronically ill, well-nourished, no acute distress. HEAD: Atraumatic, normocephalic. EYES: Pupils equal round and reactive to light, extraocular movements intact, conjunctiva are normal. ENT: Nares patent, oropharynx clear without exudates. Dry mucous membranes. NECK: Normal range of motion, supple without lymphadenopathy right neck contains a Vas-Cath LUNGS: Breath sounds clear to auscultation bilaterally and equal. No wheezes rales or rhonchi. HEART: Regular rate and rhythm ABDOMEN: Soft, nontender, nondistended abdomen. No guarding, no rebound. No masses appreciated. Female : deferred Musculoskeletal: Normal range of motion, +2 pitting edema. No cyanosis. NEUROLOGICAL: Cranial nerves grossly intact. Normal speec Normal sensory, motor exams PSYCH: Normal mood, normal affect. SKIN: Warm, Dry, normal turgor. Multiple ecchymotic areas on her upper extremities in varying stages of healing. AV graft left upper extremity positive thrill and bruit. Course - Re-evaluation Re-evalutation: 04/27/17 20:29 Labs- All tests 24 hr 04/27/17 04/27/17 04/27/17 15:35 15:35 15:35 WBC 6.3 RBC 3.47 L Hgb 10.6 L Hct 32.1 L MCV 93 MCH 30.6 MCHC 33.0 RDW 16.5 H Plt Count 114 L Seg Neutrophils % 68.4 Lymphocytes % 14.1 Monocytes % 16.5 H Eosinophils % 0.0 Basophils % 1.0 Absolute Neutrophils 4.3 Absolute Lymphocytes 0.9 Absolute Monocytes 1.0 Absolute Eosinophils 0.0 Absolute Basophils 0.1 Sodium 139.0 Potassium 4.5 Chloride 102 Carbon Dioxide 19 L Anion Gap 18 BUN 62 H Creatinine 5.57 H Est GFR ( Amer) 9 L Est GFR (Non-Af Amer) 7 L Glucose 119 H Calcium 9.6 Magnesium 2.0 Total Bilirubin 2.3 H Direct Bilirubin 1.1 H Neonat Total Bilirubin Not Reportable Neonat Direct Bilirubin Not Reportable Neonat Indirect Bili Not Reportable AST 36 ALT 31 Alkaline Phosphatase 92 Troponin I 0.024 Total Protein 6.8 Albumin 4.0 Chest X-Ray 04/27/17 16:07 IMPRESSION: NO ACUTE RADIOGRAPHIC FINDING IN THE CHEST. - Vital Signs Vital signs: Temp Pulse Resp BP Pulse Ox 13 126/64 H 97 04/27/17 17:15 04/27/17 17:01 04/27/17 17:15 - Laboratory Result Diagrams: 04/27/17 15:35 04/27/17 15:35 Laboratory results interpreted by me: 04/27/17 04/27/17 15:35 15:35 RBC 3.47 L Hgb 10.6 L Hct 32.1 L RDW 16.5 H Plt Count 114 L Monocytes % 16.5 H Carbon Dioxide 19 L BUN 62 H Creatinine 5.57 H Est GFR ( Amer) 9 L Est GFR (Non-Af Amer) 7 L Glucose 119 H Total Bilirubin 2.3 H Direct Bilirubin 1.1 H - EKG Interpretation by Me EKG shows normal: Sinus rhythm Rate: Tachycardia - 104 sinus arrythmia When compared to previous EKG there are: Changes noted Additional EKG results interpreted by me: 04/27/17 20:[address] Morrell's office this morning she was a rate of 150 narrow complex tachycardia varying P wave morphology atrial tachycardia with nonspecific ST-T changes Discharge - Discharge Clinical Impression: Retroperitoneal mass, Atrial tachycardia, ESRD on dialysis Condition: Stable Disposition: ADMITTED OBSERVATION Admitting Provider: Hospitalist - Dr. Chou Unit Admitted: Telemetry Referrals: DUANE FERNÁNDEZ MD [Primary Care Provider] - Follow up as needed
[2017-04-27] MEDS ORDERED: ONDANSETRON HCL INJ/PF 4 MG/2 ML SDV IV PRN (21:08)
[2017-04-27] MEDS ORDERED: ACETAMINOPHEN 325 MG TABLET PO PRN (21:08)
[2017-04-27] MEDS ORDERED: DEXTROSE 40% GEL 15 GM TUBE PO PRN ×2 (21:18)
[2017-04-27] MEDS ORDERED: INSULIN LISPRO 100 UNIT/ML 3 ML VIAL SUBCUT PRN (21:18)
[2017-04-27] MEDS ORDERED: DEXTROSE 50%-WATER 25 GM/50 ML DISP.SYRIN IV PRN ×2 (21:18)
[2017-04-27] MEDS ORDERED: GLUCAGON,HUMAN RECOMB 1 MG INJ IM PRN (21:18)
[2017-04-27] MEDS ORDERED: METOPROLOL TARTRATE PF/INJ 5 MG/5 ML SDV IV PRN (21:22)
[2017-04-27] MEDS ORDERED: LABETALOL HCL 200 MG TABLET PO SCH (22:00)
--- NOTE | 2017-04-27 22:45 | EKG REPORT ---
SEVERITY:- ABNORMAL ECG - SINUS RHYTHM WITH SHORT PAT RUN,.LVH WITH SECONDARY REPOLARIZATION ABNORMALITY : Confirmed by: Maria E Elise 27-Apr-2017 22:44:33
[2017-04-27] MEDS: FAMOTIDINE 20 MG TABLET PO SCH (23:49)
[2017-04-27] MEDS: ATORVASTATIN CALCIUM 10 MG TABLET PO SCH (23:50)
[2017-04-27] MEDS ORDERED: DILTIAZEM HCL INJ 25 MG/5 ML VIAL IV ONE (23:55)
[2017-04-27] MEDS ORDERED: MIDODRINE HCL 5 MG TABLET PO ONE (23:55)
[2017-04-28] MEDS ORDERED: METOPROLOL TARTRATE PF/INJ 5 MG/5 ML SDV IV PRN (02:37)
--- NOTE | 2017-04-28 02:52 | PDOC H&P ---
History of Present Illness Admission Date/PCP: 04/27/17 20:41 DUANE FERNÁNDEZ MD Patient complains of: Palpitations History of Present Illness: ADELAIDA BAR is a 76 year old female with a history of end-stage renal disease on dialysis, diabetes, atrial fibrillation and a right upper quadrant mass. Patient was at Dr. Morrell her field advisor's office when she was found to be an arrhythmia. Patient was instructed to come here for further treatment and evaluation of her arrhythmia. Patient states she has been in this arrhythmia for months. Patient states she is had palpitations, weakness, and shortness of breath. Patient has also been lightheaded. Patient states she is on labetalol however the late labetalol because of her blood pressure go down low. Patient denies any chest pain. Patient last with dialysis on Monday. Patient states her dialysis was only 1 hour. Patient state was cut short because she felt faint. ED patient was found to be in atrial fibrillation with heart rates into the 140s. Patient was also hypotensive. Hospitalist was called to admit patient for A. fib and hypotension. Past Medical History Cardiac Medical History: Reports: Atrial Fibrillation, Hyperlipidema, Hypertension Denies: Coronary Artery Disease, Myocardial Infarction Pulmonary Medical History: Denies: Asthma, Bronchitis, Chronic Obstructive Pulmonary Disease (COPD), Pneumonia, Tuberculosis Neurological Medical History: Reports: None Denies: Seizures Endocrine Medical History: Reports: Diabetes Mellitus Type 1, Diabetes Mellitus Type 2 Renal/ Medical History: Reports: End Stage Renal Disease Malignancy Medical History: Reports: None, Other - Retroperitoneal mass. Patient awaiting biopsy results GI Medical History: Reports: None Musculoskeltal Medical History: Reports: Arthritis - GENEARLIZED Psychiatric Medical History: Reports: Depression Traumatic Medical History: Reports: None Hematology: Reports: Anemia - PERIODICALLY D/T DIALYSIS Past Surgical History Past Surgical History: Reports: Section, Cholecystectomy, Orthopedic Surgery - left knee Denies: Pacemaker Social History Lives with: Family Smoking Status: Never Smoker Hx Recreational Drug Use: No Hx Prescription Drug Abuse: No - Advance Directive Resuscitation Status: Full Code Family History Family History: DM Parental Family History Reviewed: No Children Family History Reviewed: No Sibling(s) Family History Reviewed.: No Medication/Allergy Home Medications: Allopurinol [Zyloprim 100 mg Tablet] 100 mg PO DAILY 04/27/17 Amlodipine Besylate [Norvasc 5 mg Tablet] 5 mg PO DAILY 04/27/17 Furosemide [Lasix 80 mg Tablet] 80 mg PO BID 04/27/17 Glimepiride [Amaryl 4 mg Tablet] 4 mg PO DAILY 04/27/17 Hydrocodone/Acetaminophen [Hydrocodone-Acetamin 5-325 mg] 1 tab PO Q6HP PRN 11/04 Labetalol HCl [Trandate] 100 mg PO Q8 04/27/17 Nizatidine [Axid] 150 mg PO DAILY 04/27/17 Pravastatin Sodium [Pravachol] 40 mg PO QPM 04/27/17 Allergies/Adverse Reactions: cefprozil [From Cefzil] Allergy (Unknown, Verified 04/27/17 09:43) Review of Systems Constitutional: ABSENT: chills, fever(s), headache(s), weight gain, weight loss Eyes: ABSENT: visual disturbances Ears: ABSENT: hearing changes Cardiovascular: PRESENT: dyspnea on exertion, edema, palpitations. ABSENT: chest pain, orthropnea Respiratory: PRESENT: dyspnea. ABSENT: cough, hemoptysis Gastrointestinal: PRESENT: bloating, other - Early satiety. ABSENT: abdominal pain, constipation, diarrhea, hematemesis, hematochezia, nausea, vomiting Genitourinary: ABSENT: dysuria, hematuria Musculoskeletal: ABSENT: joint swelling Integumentary: ABSENT: rash, wounds Neurological: ABSENT: abnormal gait, abnormal speech, confusion, dizziness, focal weakness, syncope Psychiatric: ABSENT: anxiety, depression, homidical ideation, suicidal ideation Endocrine: ABSENT: cold intolerance, heat intolerance, polydipsia, polyuria Hematologic/Lymphatic: ABSENT: easy bleeding, easy bruising Physical Exam Vital Signs: Temp Pulse Resp BP Pulse Ox 13 126/64 H 97 04/27/17 17:15 04/27/17 17:01 04/27/17 17:15 General appearance: PRESENT: no acute distress, obese Head exam: PRESENT: normocephalic Eye exam: PRESENT: EOMI. ABSENT: scleral icterus Ear exam: PRESENT: normal external ear exam Mouth exam: PRESENT: moist Neck exam: ABSENT: carotid bruit, JVD, lymphadenopathy, thyromegaly Respiratory exam: PRESENT: clear to auscultation jorgito. ABSENT: rales, rhonchi, wheezes Cardiovascular exam: PRESENT: RRR. ABSENT: diastolic murmur, rubs, systolic murmur Pulses: PRESENT: normal dorsalis pedis pul Vascular exam: PRESENT: normal capillary refill GI/Abdominal exam: PRESENT: normal bowel sounds, soft, other - Protuberant. ABSENT: guarding, mass, organolmegaly, rebound, tenderness Rectal exam: PRESENT: deferred Extremities exam: PRESENT: full ROM. ABSENT: calf tenderness, clubbing, pedal edema Neurological exam: PRESENT: alert, awake, oriented to person, oriented to place , oriented to time, oriented to situation, CN II-XII grossly intact. ABSENT: motor sensory deficit Psychiatric exam: PRESENT: appropriate affect, normal mood. ABSENT: homicidal ideation, suicidal ideation Skin exam: PRESENT: dry, intact, warm. ABSENT: cyanosis, rash Results Laboratory Results: 04/27/17 04/27/17 04/27/17 15:35 15:35 15:35 WBC 6.3 RBC 3.47 L Hgb 10.6 L Hct 32.1 L MCV 93 MCH 30.6 MCHC 33.0 RDW 16.5 H Plt Count 114 L Seg Neutrophils % 68.4 Lymphocytes % 14.1 Monocytes % 16.5 H Eosinophils % 0.0 Basophils % 1.0 Absolute Neutrophils 4.3 Absolute Lymphocytes 0.9 Absolute Monocytes 1.0 Absolute Eosinophils 0.0 Absolute Basophils 0.1 Sodium 139.0 Potassium 4.5 Chloride 102 Carbon Dioxide 19 L Anion Gap 18 BUN 62 H Creatinine 5.57 H Est GFR ( Amer) 9 L Est GFR (Non-Af Amer) 7 L Glucose 119 H POC Glucose Calcium 9.6 Magnesium 2.0 Total Bilirubin 2.3 H Direct Bilirubin 1.1 H AST 36 ALT 31 Alkaline Phosphatase 92 Troponin I 0.024 Total Protein 6.8 Albumin 4.0 04/27/17 04/27/17 04/28/17 22:12 22:12 00:36 WBC RBC Hgb Hct MCV MCH MCHC RDW Plt Count Seg Neutrophils % Lymphocytes % Monocytes % Eosinophils % Basophils % Absolute Neutrophils Absolute Lymphocytes Absolute Monocytes Absolute Eosinophils Absolute Basophils Sodium Potassium Chloride Carbon Dioxide Anion Gap BUN Creatinine Est GFR ( Amer) Est GFR (Non-Af Amer) Glucose POC Glucose 128 H Calcium Magnesium 2.0 Total Bilirubin Direct Bilirubin AST ALT Alkaline Phosphatase Troponin I 0.024 Total Protein Albumin Impressions: Chest X-Ray 04/27/17 16:07 IMPRESSION: NO ACUTE RADIOGRAPHIC FINDING IN THE CHEST. Assessment & Plan - Diagnosis (1) Atrial fibrillation Qualifiers: Atrial fibrillation type: chronic Qualified Code(s): I48.2 - Chronic atrial fibrillation Is this a current diagnosis for this admission?: Yes Plan: Patient possibly in A. fib while she was at her field advisor's office however here she was found to have a tachyarrhythmia. Patient was given Cardizem 15 mg IV push. Patient heart rate came down from the 140s to the 60s. Be started on Toprol-XL 25 mg daily. Patient potassium and magnesium are normal. Troponins are mildly elevated however this could be due to her end-stage renal disease. Cardiac echo pending. TSH T4 ordered. (2) ESRD on dialysis Is this a current diagnosis for this admission?: Yes Plan: Patient last dialysis session was on Monday. Patient due for dialysis on Monday. Dr. Duong will be consulted. (3) Retroperitoneal mass Is this a current diagnosis for this admission?: Yes Plan: She is being evaluated by Dr. Christina Lopez for her retroperitoneal mass. She has already undergone biopsy. Patient complains of a lot of pain early satiety. (4) Diabetes mellitus type 2 in obese Is this a current diagnosis for this admission?: Yes Plan: Patient currently on sliding scale insulin. (5) Hypotension Is this a current diagnosis for this admission?: Yes Plan: Secondary to her tachyarrhythmia. Once this is created patient hypo-tension should improve. - Time Time Spent: 30 to 50 Minutes Anticipated discharge: Home Within: within 48 hours
[2017-04-28] MEDS ORDERED: MIDODRINE HCL 5 MG TABLET PO ONE (04:00)
[2017-04-28 04:46] LABS: ALANINE AMINOTRANSFERASE 25 U/L (9-52); ALBUMIN 3.5 g/dL (3.5-5.0); ALKALINE PHOSPHATASE 83 U/L (38-126); ANION GAP 16 (5-19); ASPARTATE AMINO TRANSFERASE 26 U/L (14-36); BILIRUBIN,DIRECT 0.7 mg/dL (0.0-0.4); BILIRUBIN,TOTAL 1.4 mg/dL (0.2-1.3); BLOOD UREA NITROGEN 70 mg/dL (7-20); CALCIUM 8.9 mg/dL (8.4-10.2); CARBON DIOXIDE 21 mmol/L (22-30); CHLORIDE 103 mmol/L (98-107); GLUCOSE 114 mg/dL (75-110); POTASSIUM 4.4 mmol/L (3.6-5.0); SODIUM 139.9 mmol/L (137-145); TOTAL PROTEIN 5.5 g/dL (6.3-8.2)
[2017-04-28 04:58] LABS: FREE T4 (FREE THYROXINE) 1.84 ng/dL (0.78-2.19)
[2017-04-28 05:11] LABS: THYROID STIMULATING HORMONE 3.82 uIU/mL (0.47-4.68)
[2017-04-28] MEDS ORDERED: MIDODRINE HCL 5 MG TABLET PO SCH (06:00)
[2017-04-28] MEDS ORDERED: NORMAL SALINE 1000 ML 1,000 ML IV PRN (08:47)
[2017-04-28] MEDS ORDERED: HEPARIN SOD (PORCINE) 1,000 UNIT/ML 10 ML VIAL IV PRN (08:47)
[2017-04-28] MEDS ORDERED: NIZATIDINE 150 MG PO SCH (10:00)
[2017-04-28] MEDS ORDERED: METOPROLOL SUCCINATE 25 MG TAB.SR.24H PO SCH (10:00)
[2017-04-28] MEDS ORDERED: (PENDING PHARMACY ID) (Pravastatin Sodium [Pravastatin Sodium] 40 MG) PO SCH (10:00)
--- NOTE | 2017-04-28 10:04 | EKG REPORT ---
SEVERITY:- ABNORMAL ECG - SINUS TACHYCARDIA PROBABLE LVH WITH SECONDARY REPOL ABNRM VS ISCHEMIA : Confirmed by: Maria E Elise 28-Apr-2017 10:03:18
[2017-04-28] MEDS: FAMOTIDINE 20 MG TABLET PO SCH ×2 (13:57→22:32)
[2017-04-28] MEDS: LANSOPRAZOLE 30 MG TAB.RAP.DR PO SCH (13:57)
[2017-04-28] MEDS: ALLOPURINOL 100 MG TABLET PO SCH (13:57)
[2017-04-28] MEDS: DOCUSATE SODIUM 100 MG CAPSULE PO SCH ×2 (13:57→17:32)
[2017-04-28] MEDS ORDERED: DILTIAZEM HCL 180 MG CAPSULE.CR PO ONE (15:00)
--- NOTE | 2017-04-28 16:44 | PDOC CONSULTATION ---
Consultation Consult Date: 04/28/17 Attending physician:: MIGUEL ANGEL DUMAS Consult reason:: I was asked to see the patient to supervise hemodialysis while here in the hospital. History of Present Illness Admission Date/PCP: 04/27/17 20:41 DUANE FERNÁNDEZ MD History of Present Illness: ADELAIDA BAR is a 76 year old female known to me with a history of end- stage renal disease on dialysis, diabetes, hypertension, history of atrial fibrillation and a right upper quadrant mass. Patient was at Dr. Morrell her parts sales advisor's office yesterday when she was found to be an arrhythmia. Patient was instructed to come here for further treatment and evaluation of her arrhythmia. Patient states she has been in this arrhythmia for months. Patient states she is had palpitations, weakness, and shortness of breath. Patient has also been lightheaded. Patient states she is on labetalol however the late labetalol because of her blood pressure go down low. Patient denies any chest pain. Patient last with dialysis on Monday. Patient states her dialysis was only 1 hour because of tachycardia. Patient state was cut short because she felt faint. ED patient was found to be in atrial fibrillation with heart rates into the 140s. Patient was also hypotensive. EKG tracing still showed sinus tachycardia with some atrial arrhythmia. Patient was given Cardizem and started on Toprol. Cardiology was consulted as well. I saw the patient during dialysis treatment at around 12:30 PM today. At that time she was cramping so we had to decrease her ultrafiltration rate. She denies any chest pains no shortness of breath today. She denies any palpitations today either. She has a little bit of nausea but denies vomiting. Past Medical History Cardiac Medical History: Reports: Atrial Fibrillation, Hyperlipidemia, Hypertension-primary Endocrine Medical History: Reports: Diabetes Mellitus Type 2 Complications of Diabetes: Reports: Nephropathy Renal/ Medical History: Reports: End Stage Renal Disease, Hyperphosphatemia, Nephrolithiasis, Proteinuria, Secondary Hyperparathyroidism Malignancy Medical History: Reports: Other - Retroperitoneal mass GI Medical History: Reports: Other - Hemochromatosis, CAIN Musculoskeltal Medical History: Reports: Arthritis - GENEARLIZED, Gout Psychiatric Medical History: Reports: Depression Hematology Medical History: Reports Anemia of Chronic Kidney Disease, Reports Iron Deficiency Anemia Past Surgical History Past Surgical History: Reports: Section, Cholecystectomy, Dialysis Access Surgery AVF, Orthopedic Surgery - left knee arthroscopy, carpal tunnel surgery bilateral, Tonsillectomy - Retroperitoneal mass biopsy, Other - PermCath placement, cataract surgery, subtotal parathyroidectomy Social History Information Source: Patient Smoking Status: Never Smoker Frequency of Alcohol Use: None Hx Recreational Drug Use: No Hx Prescription Drug Abuse: No - Advance Directive Resuscitation Status: Full Code Family History Family History: CAD - Brother and mother, DM - Brother Parental Family History Reviewed: Yes Children Family History Reviewed: Unknown Sibling(s) Family History Reviewed.: Yes Medication/Allergy Home Medications: Allopurinol [Zyloprim 100 mg Tablet] 100 mg PO DAILY 04/27/17 Amlodipine Besylate [Norvasc 5 mg Tablet] 5 mg PO DAILY 04/27/17 Furosemide [Lasix 80 mg Tablet] 80 mg PO BID 04/27/17 Glimepiride [Amaryl 4 mg Tablet] 4 mg PO DAILY 04/27/17 Hydrocodone/Acetaminophen [Hydrocodone-Acetamin 5-325 mg] 1 tab PO Q6HP PRN 11/04 Labetalol HCl [Trandate] 100 mg PO Q8 04/27/17 Nizatidine [Axid] 150 mg PO DAILY 04/27/17 Pravastatin Sodium [Pravachol] 40 mg PO QPM 04/27/17 Allergies/Adverse Reactions: cefprozil [From Cefzil] Allergy (Unknown, Verified 04/27/17 09:43) Review of Systems All systems: reviewed and no additional remarkable complaints except as stated Review of Systems: Constitutional: ABSENT: chills, fatigue, fever(s), headache(s), weight gain, weight loss Eyes: ABSENT: visual disturbances Ears: ABSENT: hearing changes Cardiovascular: ABSENT: chest pain, orthropnea,; admits shortness of breath on exertion with edema, palpitations and occasionally Respiratory: ABSENT: cough, hemoptysis Gastrointestinal: ABSENT: abdominal pain, constipation, diarrhea, hematemesis, hematochezia, nausea, vomiting Genitourinary: ABSENT: dysuria, hematuria Musculoskeletal: ABSENT: joint swelling Integumentary: ABSENT: rash, wounds Neurological: ABSENT: abnormal gait, abnormal speech, confusion, dizziness, focal weakness, numbness, syncope Psychiatric: Admits anxiety, depression Endocrine: ABSENT: cold intolerance, heat intolerance, polydipsia, polyuria Hematologic/Lymphatic: ABSENT: easy bleeding, easy bruising, lymphadenopathy Physical Exam Vital Signs: Temp Pulse Resp BP Pulse Ox 98.2 F 141 H 20 111/87 H 99 04/28/17 10:10 04/28/17 14:00 04/28/17 10:10 04/28/17 10:10 04/28/17 10:10 Intake & Output 04/27/17 04/28/17 04/29/17 06:59 06:59 06:59 Weight 93 kg Vitals during dialysis: Blood pressure 112/53, heart rate of 73, at most her heart rate went up to 136 at one point, blood flow rate of 300 mL/min, dialysate flow rate of 600 mL/min. Exam: General appearance: no acute distress, cooperative, well-developed, well- nourished Head exam: PRESENT: atraumatic, normocephalic Eye exam: PRESENT: Conjunctiva pale, EOMI, PERRLA. ABSENT: conjunctival injection, scleral icterus Mouth exam: PRESENT: moist, neck supple, tongue midline Neck exam: PRESENT: full ROM. ABSENT: carotid bruit, JVD, lymphadenopathy, thyromegaly Respiratory exam: PRESENT: Diminished to auscultation bilaterally. ABSENT: rales, rhonchi, stridor, wheezes Cardiovascular exam: PRESENT: RRR, +S1, +S2. ABSENT: systolic murmur Pulses: PRESENT: normal radial pulses, normal dorsalis pedis pulses GI/Abdominal exam: PRESENT: normal bowel sounds, soft. ABSENT: guarding, mass, tenderness Rectal exam: deferred Extremities exam: PRESENT: full ROM. Grade 2 bilateral lower extremity bipedal edema ABSENT: calf tenderness Musculoskeletal: PRESENT: full ROM. ABSENT: deformity Neurological exam: PRESENT: alert, Awake, Oriented to person, Oriented to place , Oriented to time, reflexes normal, CN II-XII grossly intact. ABSENT: motor sensory deficit Psychiatric exam: PRESENT: appropriate affect, normal mood. ABSENT: homicidal ideation, suicidal ideation Skin exam: PRESENT: intact, dry, warm. ABSENT: rash Results Laboratory Results: 04/28/17 04:12 04/27/17 04/28/17 04/28/17 22:12 04:12 04:12 Sodium 139.9 Potassium 4.4 Chloride 103 Carbon Dioxide 21 L Anion Gap 16 BUN 70 H Creatinine 6.06 H Est GFR ( Amer) 8 L Est GFR (Non-Af Amer) 7 L Glucose 114 H Calcium 8.9 Magnesium 2.0 2.0 Total Bilirubin 1.4 H AST 26 ALT 25 Alkaline Phosphatase 83 Total Protein 5.5 L Albumin 3.5 TSH 3.82 Free T4 1.84 04/27/17 04/28/17 04/28/17 22:12 04:12 10:48 Troponin I 0.024 0.020 0.019 Impressions: Chest X-Ray 04/27/17 16:07 IMPRESSION: NO ACUTE RADIOGRAPHIC FINDING IN THE CHEST. Assessment & Plan - Diagnosis (1) ESRD on dialysis Is this a current diagnosis for this admission?: Yes Plan: We did dialysis today for 3 hours, using the patient's PermCath, with 2 potassium bath, blood flow rate of 300 mL per minute, dialysate flow rate of 600 mL per minute, ultrafiltration 2.5 L, no heparin and no Procrit during dialysis. He will continue to supervise dialysis while the patient is here in the hospital. (2) Atrial tachycardia Is this a current diagnosis for this admission?: Yes Plan: Defer to cardiology for management. (3) Hypotension Is this a current diagnosis for this admission?: Yes Plan: This is due to episode of tachycardia. (4) Anemia in chronic kidney disease (CKD) Is this a current diagnosis for this admission?: Yes Plan: Procrit as needed during dialysis. (5) Retroperitoneal mass Is this a current diagnosis for this admission?: Yes Plan: Status post biopsy on 04/25/[address] Thibodeaux. (6) Diabetes mellitus type 2 in obese Is this a current diagnosis for this admission?: Yes - Notes Notes: Thank you very much for this consultation. - Time Time Spent: 50 to 70 Minutes
--- NOTE | 2017-04-28 17:31 | PDOC PROGRESS REPORT ---
Subjective Progress Note for:: 04/28/17 Subjective:: Mrs. Ramos is a 76 [id number] who was at her enterprise account executive's office and found to be in a tachyarrythmia. Patient was instructed to come here for further treatment and evaluation. Patient states this has been happening on and off for 2 weeks. Patient states she is experiencing palpitations, weakness , and shortness of breath whenever she ambulates. Patient denies chest pain. Patient has a past medical history of diabetes, atrial fibrillation, end-stage renal disease on dialysis. Patient states that recently she has not been able to tolerate her dialysis sessions. her sessions are supposed to last 3 hours she typically only lasts 1-2 hours before needing to stop the session early because she feels faint. Patient was seen on morning rounds. She was found sitting in a chair complaining of general malaise. The patient had just eaten breakfast and stated that she was nauseous. At the time of this assessment patient was normotensive with a heart rate in the 80s, her rhythm was normal sinus. Reason For Visit: ARRHYTHMIA Physical Exam Vital Signs: Temp Pulse Resp BP Pulse Ox 98.2 F 141 H 20 111/87 H 99 04/28/17 10:10 04/28/17 14:00 04/28/17 10:10 04/28/17 10:10 04/28/17 10:10 Intake & Output 04/27/17 04/28/17 04/29/17 06:59 06:59 06:59 Weight 93 kg General appearance: PRESENT: no acute distress, obese Head exam: PRESENT: normocephalic Eye exam: PRESENT: conjunctiva pink Mouth exam: PRESENT: moist Neck exam: PRESENT: full ROM Respiratory exam: PRESENT: clear to auscultation jorgito Cardiovascular exam: PRESENT: irregular rhythm, +S1, +S2 Pulses: PRESENT: +1 pedal pulses bilateral Vascular exam: PRESENT: pallor GI/Abdominal exam: PRESENT: soft Rectal exam: PRESENT: deferred Extremities exam: PRESENT: full ROM Musculoskeletal exam: PRESENT: ambulatory Neurological exam: PRESENT: alert, awake Psychiatric exam: PRESENT: appropriate affect Skin exam: PRESENT: jaundice Results Laboratory Results: 04/28/17 04:12 04/27/17 04/28/17 04/28/17 22:12 04:12 04:12 Sodium 139.9 Potassium 4.4 Chloride 103 Carbon Dioxide 21 L Anion Gap 16 BUN 70 H Creatinine 6.06 H Est GFR ( Amer) 8 L Est GFR (Non-Af Amer) 7 L Glucose 114 H Calcium 8.9 Magnesium 2.0 2.0 Total Bilirubin 1.4 H AST 26 ALT 25 Alkaline Phosphatase 83 Total Protein 5.5 L Albumin 3.5 TSH 3.82 Free T4 1.84 04/27/17 04/28/17 04/28/17 22:12 04:12 10:48 Troponin I 0.024 0.020 0.019 Impressions: Chest X-Ray 04/27/17 16:07 IMPRESSION: NO ACUTE RADIOGRAPHIC FINDING IN THE CHEST. Status: Imported from PACS Assessment & Plan - Diagnosis (1) Atrial tachycardia Is this a current diagnosis for this admission?: Yes Plan: EKG from ER shows tachyarrythmia. Patient was given 15 mg of Cardizem IV push in the emergency department. Her heart rate slowed down from the 140s to the 60s. Pre- and post- treatment EKGs show tacyarrythmia. Started on metoprolol [address] of patient's home dose of Lopressor. Patient started on Cardizem 180 mg daily to achieve rate control. Troponin level was slightly elevated but not totally reliable due to ESRD. Electrolytes within normal limits and no evidence of anemia as possible cause for tachyarrhythmia. Patient does have history of atrial fibrillation. She is not currently on anticoagulation because of a history of gastric ulcers. (2) ESRD on dialysis Is this a current diagnosis for this admission?: Yes Plan: Patient was dialyzed on April 26. She is due for dialysis today. Dr. Duong has been consulted. Patient reports recent history of not being able to tolerate a full 3 hour dialysis sessions. She states she is only able to tolerate 1-2 hours before feeling faint. It is very possible that the patient is fluid overloaded (as evidenced by +2 pitting edema in her lower extremities) which could contribute to the cause of her tachyarrythmia. (3) Hypotension Is this a current diagnosis for this admission?: Yes Plan: Resolved. Hypotension was secondary to her tachyarrhythmia. Now that she is in a normal sinus rhythm the patient is normotensive (4) Retroperitoneal mass Is this a current diagnosis for this admission?: Yes Plan: Patient is being evaluated by Dr. Christina Lopez for her retroperitoneal mass. She has already undergone biopsy. Patient complains a lot of pain near the biopsy site. (5) Atrial fibrillation Qualifiers: Atrial fibrillation type: chronic Qualified Code(s): I48.2 - Chronic atrial fibrillation Is this a current diagnosis for this admission?: Yes Plan: The patient has a history of atrial fibrillation. It is possible that she was in rapid A. fib at the enterprise account executive's office but the EKG from the emergency department shows a tachyarrhythmia. Electrolytes are all within normal limits. The patient is currently not on any anticoagulation for her A. fib due to history of gastric ulcers. (6) Diabetes mellitus type 2 in obese Is this a current diagnosis for this admission?: Yes Plan: On sliding scale insulin - Inpatient Certification Based on my medical assessment, after consideration of the patient's comorbidities, presenting symptoms, or acuity I expect that the services needed warrant INPATIENT care.: Yes I certify that my determination is in accordance with my understanding of Medicare's requirements for reasonable and necessary INPATIENT services [42 CFR 412.3e].: Yes Medical Necessity: Need For Continuous Telemetry Monitoring - Plan Summary Plan Summary: Admit to the hospital. Nephrology consulted. Will start on cardizem for rhythm control. Plan to d/c home within 24-48 hours
--- NOTE | 2017-04-28 20:05 | PDOC CONSULTATION ---
Consultation Consult Date: 04/28/17 Attending physician:: MIGUEL ANGEL DUMAS Consult reason:: Palpitations History of Present Illness Admission Date/PCP: 04/27/17 20:41 DUANE FERNÁNDEZ MD Patient complains of: Palpitations and shortness of breath History of Present Illness: ADELAIDA BAR is a 76 year old female known to me with a history of end- stage renal disease on dialysis, diabetes, hypertension, history of atrial fibrillation and a right upper quadrant mass. Patient was at Dr. Morrell her head of ict's office yesterday when she was found to be an arrhythmia. Patient was instructed to come here for further treatment and evaluation of her arrhythmia. Patient states she has been in this arrhythmia for months. Patient states she is had palpitations, weakness, and shortness of breath. Patient has also been lightheaded. Patient states she is on labetalol however the labetalol was discontinued because of her blood pressure was going down low. Patient denies any chest pain. Patient last with dialysis on Monday. Patient states her dialysis was only 1 hour because of tachycardia. Patient state was cut short because she felt faint. ED patient was found to be in atrial fibrillation with heart rates into the 140s. Patient was also hypotensive. EKG tracing still showed sinus tachycardia with some atrial arrhythmia. Patient was given Cardizem and started on Toprol. Cardiology was consulted as well. I saw the patient during dialysis treatment at around 12:30 PM today. At that time she was cramping so we had to decrease her ultrafiltration rate. She denies any chest pains no shortness of breath today. She denies any palpitations today either. She has a little bit of nausea but denies vomiting. This history was reviewed and confirmed. Patient denied any previous cardiac workup because she never really had any cardiac related issues. Patient however denies other significant comorbid conditions. Past Medical History Cardiac Medical History: Reports: Atrial Fibrillation, Hyperlipidema, Hypertension Denies: Coronary Artery Disease, Myocardial Infarction Pulmonary Medical History: Denies: Asthma, Bronchitis, Chronic Obstructive Pulmonary Disease (COPD), Pneumonia, Tuberculosis Neurological Medical History: Reports: None Denies: Seizures Endocrine Medical History: Reports: Diabetes Mellitus Type 1, Diabetes Mellitus Type 2 Renal/ Medical History: Reports: End Stage Renal Disease, Nephrolithiasis Malignancy Medical History: Reports: None, Other - Retroperitoneal mass GI Medical History: Reports: None, Other - Hemochromatosis, CAIN Musculoskeltal Medical History: Reports: Arthritis - GENEARLIZED, Gout Psychiatric Medical History: Reports: Depression Traumatic Medical History: Reports: None Hematology: Reports: Anemia - PERIODICALLY D/T DIALYSIS Past Surgical History Past Surgical History: Reports: Section, Cholecystectomy, Orthopedic Surgery - left knee arthroscopy, carpal tunnel surgery bilateral, Tonsillectomy - Retroperitoneal mass biopsy, Other - PermCath placement, cataract surgery, subtotal parathyroidectomy Denies: Pacemaker Social History Information Source: Patient Lives with: Family Smoking Status: Never Smoker Frequency of Alcohol Use: None Hx Recreational Drug Use: No Hx Prescription Drug Abuse: No - Advance Directive Resuscitation Status: Full Code Surrogate healthcare decision maker:: Patient's daughter is the surrogate decision-maker Family History Family History: DM, Hypertension Parental Family History Reviewed: Yes Children Family History Reviewed: Yes Sibling(s) Family History Reviewed.: Yes Medication/Allergy Home Medications: Allopurinol [Zyloprim 100 mg Tablet] 100 mg PO DAILY 04/27/17 Amlodipine Besylate [Norvasc 5 mg Tablet] 5 mg PO DAILY 04/27/17 Furosemide [Lasix 80 mg Tablet] 80 mg PO BID 04/27/17 Glimepiride [Amaryl 4 mg Tablet] 4 mg PO DAILY 04/27/17 Hydrocodone/Acetaminophen [Hydrocodone-Acetamin 5-325 mg] 1 tab PO Q6HP PRN 11/04 Labetalol HCl [Trandate] 100 mg PO Q8 04/27/17 Nizatidine [Axid] 150 mg PO DAILY 04/27/17 Pravastatin Sodium [Pravachol] 40 mg PO QPM 04/27/17 Allergies/Adverse Reactions: cefprozil [From Cefzil] Allergy (Unknown, Verified 04/27/17 09:43) Review of Systems Review of Systems: Please see history of present illness and past medical history as wall. Constitutional: No fever or chills reported. Head : No recent chronic headaches, recent head injury. Eyes: No recent eye pain, diplopia, redness, discharge, acute visual changes. Ears: No recent chronic ear pain, acute hearing loss, ear discharge. Oral cavity: No recent ulcerations, bleeding, oral cavity discomfort. Neck: No recent acute neck pain reported. Hematologic: No recent easy bruising or bleeding or hematologic malignancy reported. Lymphatic: No recent lymphatic malignancy, chronic lymphadenopathy reported yet Cardiovascular system review: See history of present illness. Respiratory system review: No recent chronic cough, hemoptysis, blood clots in the lungs reported. Shortness of breath on exertion Gastrointestinal system review: Recently noted to have upper quadrant mass but denies hematemesis, melena, recent change in bowel habits. Genitourinary system review: No recent acute or chronic hematuria, flank pain, UTI etc. reported. Patient has history of end-stage renal disease on dialysis. Skin system review: Negative for any recent abnormal bruising, no rash, no pruritus reported. Neurologic: No prior history of strokes, mini strokes, seizure disorder. Psychologic: No history of major psychosis or major depression reported. Musculoskeletal: Minor aches and pains reported. No acute joint swelling reported. Endocrine: No recent polyuria, polydipsia, recent heat or cold intolerance. Physical Exam Vital Signs: Temp Pulse Resp BP Pulse Ox 98.6 F 99 20 105/60 100 04/28/17 16:17 04/28/17 16:17 04/28/17 16:17 04/28/17 16:17 04/28/17 16:17 Intake & Output 04/27/17 04/28/17 04/29/17 06:59 06:59 06:59 Intake Total 0 Balance 0 Weight 93 kg Exam: GENERAL: well-nourished and in no acute distress. Alert and oriented x3 HEAD: Atraumatic, normocephalic. EYES: Pupils equal round and reactive to light, extraocular movements intact, sclera anicteric, conjunctiva are normal. ENT: TMs normal, nares patent, oropharynx clear without exudates. Moist mucous membranes. No oral ulcerations or bleeding gums noted NECK: supple without lymphadenopathy. Trachea is central. No cervical or axillary lymphadenopathy noted. Carotids are 2+, JVD WNL LUNGS: Respiration seems nonlabored, no significant accessory muscle action noted. Breath sounds clear to auscultation bilaterally and equal noted. No wheezes rales or rhonchi noted. No significant dullness noted on percussion. CHEST: Palpation of the chest wall shows no significant chest wall tenderness. No other significant abnormalities noted. HEART: [employer]ET[employer], No PSH, 1/6 HUYEN aortic area, 1/6 quinonez systolic murmur mitral area, no rubs, no gallops. ABDOMEN: Soft, no significant tenderness appreciated, normoactive bowel sounds. No guarding, no rebound. No rigidity noted . No masses appreciated. EXTREMITIES: Pedal pulses are 1-2+, no calf tenderness noted. No clubbing or cyanosis.trace to 1+ pedal edema noted NEUROLOGICAL: Focused neurological exam showed no significant neurologic deficit. Normal speech, no focal weakness appreciated. PSYCH: Normal mood, normal affect. Judgment and insight within normal limits. SKIN: No significant ecchymosis, rash, ulcerations or signs of pruritus noted. MUSCULOSKELETAL EXAM: No significant joint swelling noted. Results Laboratory Results: 04/28/17 04:12 04/27/17 04/28/17 04/28/17 22:12 04:12 04:12 Sodium 139.9 Potassium 4.4 Chloride 103 Carbon Dioxide 21 L Anion Gap 16 BUN 70 H Creatinine 6.06 H Est GFR ( Amer) 8 L Est GFR (Non-Af Amer) 7 L Glucose 114 H Calcium 8.9 Magnesium 2.0 2.0 Total Bilirubin 1.4 H AST 26 ALT 25 Alkaline Phosphatase 83 Total Protein 5.5 L Albumin 3.5 TSH 3.82 Free T4 1.84 04/27/17 04/28/17 04/28/17 22:12 04:12 10:48 Troponin I 0.024 0.020 0.019 EKG Comments: Twelve-lead EKG reviewed. It shows sinus tachycardia with some ST-T changes consistent with ischemia Impressions: Chest X-Ray 04/27/17 16:07 IMPRESSION: NO ACUTE RADIOGRAPHIC FINDING IN THE CHEST. Assessment & Plan - Diagnosis (1) Abnormal electrocardiogram Is this a current diagnosis for this admission?: Yes (2) Multifocal atrial tachycardia Is this a current diagnosis for this admission?: Yes (3) Sinus tachycardia Is this a current diagnosis for this admission?: Yes (4) ESRD on dialysis Is this a current diagnosis for this admission?: Yes (5) Hypotension Qualifiers: Hypotension type: unspecified hypotension type Qualified Code(s): I95.9 - Hypotension, unspecified Is this a current diagnosis for this admission?: Yes (6) Diabetes mellitus type 2 in obese Is this a current diagnosis for this admission?: Yes (7) Hypertension Qualifiers: Hypertension type: essential hypertension Qualified Code(s): I10 - Essential (primary) hypertension Is this a current diagnosis for this admission?: Yes - Notes Notes: Patient was seen in the emergency room this morning. She had presented with tachycardia, initial EKG sinus tachycardia with frequent APCs which could qualify as multifocal atrial tachycardia. I believe this was misdiagnosed as atrial fibrillation. I could not find any EKG showing atrial fibrillation. Subsequent EKG shows a regular rhythm with sinus tachycardia and some ST segment depression. Patient denies any chest pain. Patient does have significant cardiac risk factors including diabetes, hypertension as well as end-stage renal disease therefore has high likelihood of having underlying coronary artery disease. Believe that patient will benefit from a ischemia workup and this was therefore scheduled. A 2D echocardiogram has also been ordered. At this point recommend patient be continued with metoprolol succinate. Patient to have dialysis. Patient will be evaluated further after 2D echocardiogram is completed. Patient's medical regimen reviewed. Further medications will be changed after review of 2D echocardiogram and other lab work and imaging studies as they are reviewed. - Time Time Spent: 30 to 50 Minutes - CODE STATUS was discussed, patient remains full code. Surrogate decision-maker unchanged. Multiple medical problems were addressed. More than 50% of the time spent coordinating care, discussing management plans with involved caregivers. Management plans discussed with involved personnels. Medical decision making was of moderate to high complexity , patient's has multiple comorbidities. Medications reviewed and adjusted accordingly: Yes
[2017-04-28] MEDS ORDERED: HYDROMORPHONE HCL INJ/PF 2 MG/ML AMPULE IV PRN (20:16)
[2017-04-28 20:34] LABS: CHOLESTEROL 118.03 mg/dL (0-200); TRIGLYCERIDES 423 mg/dL (<150)
[2017-04-28 20:44] LABS: DIRECT LDL 42 mg/dL (<100)
[2017-04-28] MEDS: ATORVASTATIN CALCIUM 10 MG TABLET PO SCH (22:32)
[2017-04-29] MEDS: LANSOPRAZOLE 30 MG TAB.RAP.DR PO SCH (06:40)
[2017-04-29 06:53] LABS: HEMATOCRIT 26.3 % (36.0-47.0); HEMOGLOBIN 8.8 g/dL (12.0-15.5); MEAN CORPUSCULAR HEMOGLOBIN 31.2 pg (27.0-33.4); MEAN CORPUSCULAR HGB CONC 33.6 g/dL (32.0-36.0); MEAN CORPUSCULAR VOLUME 93 fl (80-97); RED BLOOD COUNT 2.82 10^6/uL (3.72-5.28); RED CELL DISTRIBUTION WIDTH 16.8 % (11.5-14.0); WHITE BLOOD COUNT 5.8 10^3/uL (4.0-10.5)
[2017-04-29 07:42] LABS: ABSOLUTE LYMPHOCYTES# (MANUAL) 0.6 10^3/uL (0.5-4.7); ABSOLUTE NEUTROPHILS# (MANUAL) 4.2 10^3/uL (1.7-8.2); BASOPHILS % (MANUAL) 1 % (0-2); EOSINOPHILS % (MANUAL) 0 % (0-6); LYMPHOCYTES % (MANUAL) 7 % (13-45); MONOCYTES % (MANUAL) 17 % (3-13); NUCLEATED RED BLOOD CELLS 1 /100 WBC (0); SEGMENTED NEUTROPHILS % (MAN) 72 % (42-78); TOTAL CELLS COUNTED 100
[2017-04-29 07:46] LABS: ANISOCYTOSIS 1+; HYPOCHROMASIA SLIGHT; PLATELET COMMENT DECREASED; POLYCHROMASIA SLIGHT
[2017-04-29 07:47] LABS: PLATELET COUNT 83 10^3/uL (150-450)
[2017-04-29] MEDS ORDERED: DILTIAZEM HCL 180 MG CAPSULE.CR PO SCH (10:00)
--- NOTE | 2017-04-29 10:19 | EKG REPORT ---
SEVERITY:- ABNORMAL ECG - SINUS RHYTHM MULTIPLE ATRIAL PREMATURE COMPLEXES BORDERLINE T WAVE ABNORMALITIES : Confirmed by: Maria E Elise 29-Apr-2017 10:19:01
[2017-04-29] MEDS: DOCUSATE SODIUM 100 MG CAPSULE PO SCH (13:06)
[2017-04-29] MEDS: FAMOTIDINE 20 MG TABLET PO SCH (13:07)
[2017-04-29] MEDS: ALLOPURINOL 100 MG TABLET PO SCH (13:07)
--- NOTE | 2017-04-29 14:23 | PDOC PROGRESS REPORT ---
Subjective Progress Note for:: 04/29/17 Subjective:: Patient seems to be doing better with gradual improvement. Patient main complaint is right flank pain, where she complains that she has a kidney mass. Patient tells me she makes very little urine. Pt is denying any chest arm or neck discomfort. Patient denying any PND, orthopnea. Patient denied any sustained palpitations, dizziness, syncope, near syncope. Patient denying any fever chills. Patient denying any other significant discomfort. Patient is maintaining sinus rhythm. Review of systems: Rest review of systems negative. Medications: Medications have been reviewed. Reason For Visit: ARRHYTHMIA Physical Exam Vital Signs: Temp Pulse Resp BP Pulse Ox 98.3 F 79 14 121/58 L 96 04/29/17 11:35 04/29/17 11:35 04/29/17 11:35 04/29/17 11:35 04/29/17 11:35 Intake & Output 04/28/17 04/29/17 04/30/17 06:59 06:59 06:59 Intake Total 320 Output Total 2400 Balance -2080 Weight 94.1 kg Exam: GENERAL: well-nourished and in no acute distress. Alert and oriented x3 HEAD: Atraumatic, normocephalic. EYES: Pupils equal round and reactive to light, extraocular movements intact, sclera anicteric, conjunctiva are normal. ENT: TMs normal, nares patent, oropharynx clear without exudates. Moist mucous membranes. No oral ulcerations or bleeding gums noted NECK: supple without lymphadenopathy. Trachea is central. No cervical or axillary lymphadenopathy noted. Carotids are 2+, JVD WNL LUNGS: Respiration seems nonlabored, no significant accessory muscle action noted. Breath sounds clear to auscultation bilaterally and equal noted. No wheezes rales or rhonchi noted. No significant dullness noted on percussion. CHEST: Palpation of the chest wall shows no significant chest wall tenderness. No other significant abnormalities noted. 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 ABDOMEN: Soft, no significant tenderness appreciated, normoactive bowel sounds. No guarding, no rebound. No rigidity noted . . EXTREMITIES: Pedal pulses are 1-2+, no calf tenderness noted. No clubbing or cyanosis.trace to 1+ pedal edema noted NEUROLOGICAL: Focused neurological exam showed no significant neurologic deficit. Normal speech, no focal weakness appreciated. PSYCH: Normal mood, normal affect. Judgment and insight within normal limits. SKIN: No significant ecchymosis, rash, ulcerations or signs of pruritus noted. MUSCULOSKELETAL EXAM: No significant joint swelling noted. Results Laboratory Results: 04/29/17 05:40 04/28/17 04:12 04/28/17 04/29/17 04/29/17 04:12 05:40 05:40 WBC 5.8 RBC 2.82 L Hgb 8.8 L Hct 26.3 L MCV 93 MCH 31.2 MCHC 33.6 RDW 16.8 H Plt Count 83 L Seg Neutrophils % Not Reportable Lymphocytes % Not Reportable Monocytes % Not Reportable Eosinophils % Not Reportable Basophils % Not Reportable Absolute Neutrophils Not Reportable Absolute Lymphocytes Not Reportable Absolute Monocytes Not Reportable Absolute Eosinophils Not Reportable Absolute Basophils Not Reportable Magnesium 2.0 Triglycerides 423 H Cholesterol 118.03 LDL Cholesterol Direct 42 VLDL Cholesterol UNABLE TO CALCULATE HDL Cholesterol 14 L 04/27/17 04/28/17 04/28/17 22:12 04:12 10:48 Troponin I 0.024 0.020 0.019 EKG Comments: Twelve-lead EKG this morning shows sinus rhythm with short run of PAT Impressions: Chest X-Ray 04/27/17 16:07 IMPRESSION: NO ACUTE RADIOGRAPHIC FINDING IN THE CHEST. Assessment & Plan - Diagnosis (1) Abnormal electrocardiogram Is this a current diagnosis for this admission?: Yes (2) Multifocal atrial tachycardia Is this a current diagnosis for this admission?: Yes (3) Sinus tachycardia Is this a current diagnosis for this admission?: Yes (4) ESRD on dialysis Is this a current diagnosis for this admission?: Yes (5) Hypotension Qualifiers: Hypotension type: unspecified hypotension type Qualified Code(s): I95.9 - Hypotension, unspecified Is this a current diagnosis for this admission?: Yes (6) Diabetes mellitus type 2 in obese Is this a current diagnosis for this admission?: Yes (7) Hypertension Qualifiers: Hypertension type: essential hypertension Qualified Code(s): I10 - Essential (primary) hypertension Is this a current diagnosis for this admission?: Yes - Notes Notes: Patient came down to the nuclear lab to have stress test but was noted to have significant discomfort and she refused to continue with the stress part. The rest but did show a very small area of decreased risk perfusion, with SRS of 1. We are trying to convince patient to undergo the rest of the stress imaging tomorrow if he can control her pain. Multifocal atrial tachycardia and sinus tachycardia: Recommend ruling out pulmonary embolism. Continue Cardizem at current dose. May consider adding metoprolol succinate if needed. End-stage renal disease on dialysis: Patient being followed by relay operator. Hypotension on presentation: Blood pressure has been stable. Diabetes: Recommend good control. Hypertension: Blood pressure has been reasonable. - Time Time Spent with patient: Addendum: 2D echo reviewed. Shows normal LVEF, no definite wall motion abnormalities. Mild aortic stenosis, moderately elevated RVSP indicative of moderate pulmonary hypertension in the absence of pulmonary stenosis. Time with patient: Greater than 35 minutes - CODE STATUS was discussed, patient remains full code. Surrogate decision-maker unchanged. Multiple medical problems were addressed. More than 50% of the time spent coordinating care, discussing management plans with involved caregivers. Management plans discussed with involved personnels. Medical decision making was of moderate to high complexity, patient's has multiple comorbidities. Medications reviewed and adjusted accordingly: Yes
--- NOTE | 2017-04-29 14:35 | XCELERA REPORT ---
[address] [address] Transthoracic Echocardiogram Report Name: ADELAIDA BAR Age: 76 yrs Gender: Female : 1940 Patient Status: Inpatient Patient Location: [address] [place] [address] Study Date: 04/29/2017 01:44 PM Height: 62 in Weight: 204 lb BSA: 1.9 m2 Procedure: A complete two-dimensional transthoracic echocardiogram was performed (2D, M-mode, spectral and color flow Doppler). The study was technically adequate with some images being suboptimal in quality. Reason For Study: arrhythmia Ordering Physician: MIGUEL ANGEL DUMAS Performed By: Suze Mcclellan Interpretation Summary The left ventricular ejection fraction is normal. There is mild concentric left ventricular hypertrophy. Doppler measurements suggest pseudonormalized left ventricular relaxation, which is associated with grade II/IV or mild to moderate diastolic dysfunction The left ventricle is grossly normal size. Wall motion cannot be accurately commented on, but no definite regional wall motion abnormalities noted. The right ventricular systolic function is normal. The left atrium is mildly dilated. The right atrium is normal in size There is a mild amount of mitral regurgitation There is no mitral valve stenosis. There is mild aortic stenosis There is a peak gradient of 20-25 mm of Hg. No aortic regurgitation is present. There is a mild amount of tricuspid regurgitation There is moderate pulmonary hypertension by echo Best estimated RVSP is approximately 50 mm/Hg. There is no pericardial effusion. MMode/2D Measurements & Calculations RVDd: 3.5 cm LVIDd: 4.7 cmFS: 42.3 % Ao root diam: 3.2 cm IVSd: 1.4 cm LVIDs: 2.7 cmEDV(Teich): 101.9 ml LVPWd: 1.4 cmESV(Teich): 27.1 ml Ao root area: 8.3 cm2 EF(Teich): 73.4 % LA dimension: 4.3 cm LVOT diam: 2.2 cm LVOT area: 3.9 cm2 Doppler Measurements & Calculations MV E max anika: MV P1/2t max anika: Ao V2 max: LV V1 max P.4 cm/sec 87.4 cm/sec 242.3 cm/sec 7.1 mmHg MV A max anika: MV P1/2t: 70.0 msec Ao max PG: LV V1 max: 122.9 cm/sec MVA(P1/2t): 3.1 cm2 23.5 mmHg 133.0 cm/sec MV E/A: 0.70 MV dec slope: CHARITO(V,D): 2.1 cm2 365.3 cm/sec2 PA V2 max: TR max anika: 101.7 cm/sec 329.8 cm/sec PA max P.1 mmHgTR max P.5 mmHg Left Ventricle The left ventricle is grossly normal size. There is mild concentric left ventricular hypertrophy. The left ventricular ejection fraction is normal. Doppler measurements suggest pseudonormalized left ventricular relaxation, which is associated with grade II/IV or mild to moderate diastolic dysfunction. Wall motion cannot be accurately commented on, but no definite regional wall motion abnormalities noted. Right Ventricle The right ventricle is grossly normal size. There is normal right ventricular wall thickness. The right ventricular systolic function is normal. Atria The right atrium is normal in size. The left atrium is mildly dilated. Interarterial septum not well visualized and not well dopplered. Cannot comment on ASD/PFO presence. Mitral Valve There is mild mitral leaflet calcification. There is mild to moderate mitral annular calcification. There is no mitral valve stenosis. There is a mild amount of mitral regurgitation. Aortic Valve The aortic valve is moderately calcified. There is mild aortic stenosis. There is a peak gradient of 20-25 mm of Hg. No aortic regurgitation is present. Tricuspid Valve The tricuspid valve is not well visualized, but is grossly normal. There is no tricuspid stenosis. There is a mild amount of tricuspid regurgitation. There is moderate pulmonary hypertension by echo. Best estimated RVSP is approximately 50 mm/Hg. Pulmonic Valve The pulmonic valve is not well visualized. Great Vessels The aortic root is not well visualized. The inferior vena cava was not well visualized. Effusions There is no pericardial effusion. : MIGUEL ANGEL DUMAS > Maria E Elise
[2017-04-29 16:45] VITALS: BP 119/48
--- NOTE | 2017-05-01 10:49 | DRAGON STRESS TEST REPORT ---
SINGLE PHOTON EMMISION COMPUTERIZED TOMOGRAPHIC, REST IMAGING ONLY. DATE OF PROCEDURE: April 29, 2017, INDICATION : Atrial fibrillation CARDIAC RISK FACTORS: ESRD, hypertension NUCLEAR DATA: At rest the patient was given 14.93 millicuries of technetium 99 sestamibi injected intravenously. As per protocol rest gated SPECT images were obtained. Patient declined to undergo the stress part of the study. NUCLEAR INTERPRETATION: Both raw and processed data were used for interpretation. Visual, qualitative, computer-generated quantitative data was used. There was good myocardial uptake of technetium compound. Motion artifact and soft tissue attenuations were noted. Increased visceral uptake was noted. Rest perfusion showed borderline decreased uptake in the distal inferolateral wall, SRS of 1. EKG gated imaging showed LV EF at 59 %, rest and stress gated EF similar visually. Lung heart ratio noted to be within normal limits 0.30. No significant extracardiac and abnormal radiotracer activities were noted. RV free wall uptake was noted to be WNL. IMPRESSION: Rest images shows a borderline decreased uptake in the distal inferolateral wall, SRS score of 1. Patient did not have stress imaging performed. EKG gated imaging shows relatively well-preserved LVEF at 59% without any definite regional wall motion abnormalities at rest. MTDD
== END 2017-04-29 17:16 | disposition home or self-care (01) | DRG 308 ==
LOC: ER 15:30 → OBSVTOIN 20:41 → EH 20:41 → 4W 04-28 11:37
PROVIDERS: ADMIT Pediatrics; ATTEND Pediatrics
PROC: 5A1D70Z Performance of Urinary Filtration, Intermittent, Less than 6 Hours Per Day (ICD-10-PCS; principal; 2017-04-27)
DX: I47.1 Supraventricular tachycardia (principal); N18.6 End stage renal disease; I48.2 Chronic atrial fibrillation; D63.1 Anemia in chronic kidney disease; E11.22 Type 2 diabetes mellitus with diabetic chronic kidney disease; K75.81 Nonalcoholic steatohepatitis (NASH); M10.9 Gout, unspecified; I95.9 Hypotension, unspecified; R19.09 Other intra-abdominal and pelvic swelling, mass and lump; Z99.2 Dependence on renal dialysis; Z79.84 Long term (current) use of oral hypoglycemic drugs; Z79.899 Other long term (current) drug therapy
CPT/HCPCS: 36415; 71045; 78451; 80053; 80061; 82962; 83735; 84439; 84443; 84484; 85025; 93005; 93010; 93306; 96374; 96375; 99285; A9500; J1170; J1644; J1815; J2405; J3490; Q9969